=== PATIENT | male | born 1990 | race Caucasian/White ===

== ENCOUNTER 2021-04-19 15:49 | Outpatient (REF) | payer OTHER, SELFPAY ==
--- NOTE | ~2021-04-19 | US_ITS ---
EXAMINATION: US VENOUS ULTRASOUND WITH DOPPLER LOWER EXTREMITY, RIGHT CLINICAL INFORMATION: Pain COMPARISON: None TECHNIQUE: Ultrasound of the deep veins is performed from the hip to the calf with compression sonography and color and pulse Doppler assessment. Spectral analysis with color-flow imaging is performed. FINDINGS: There is normal venous compression and respiratory variation and augmented flow. The visualized common femoral vein, superficial femoral vein, profunda femoral vein, popliteal vein, and the trifurcation region shows no evidence of deep venous thrombosis. There is no significant popliteal fossa cyst. US/US venous duplex LE RT IMPRESSION: No DVT demonstrated in the right lower extremity.
== END 2021-04-19 15:50 | disposition home or self-care (01) ==
LOC: HO.US 15:49
PROVIDERS: PCP Internal Medicine; Visit Provider Nurse Practitioner Family
DX: M79.606 Pain in leg, unspecified (principal)
CPT/HCPCS: 93971

== ENCOUNTER 2021-06-03 15:43 | Outpatient (REF) | payer OTHER, SELFPAY ==
--- NOTE | ~2021-06-03 | XR_ITS ---
EXAMINATION: XR LUMBOSACRAL SPINE CLINICAL INFORMATION: Back pain. COMPARISON: None TECHNIQUE: Three views of the lumbosacral spine. FINDINGS: Grade 1 anterolisthesis of L5 on S1 with probable chronic bilateral spondylolysis. No loss of vertebral body height. Loss of intervertebral disc height with tiny endplate osteophytes at L5-S1. No lytic or blastic osseous lesion. No abnormal soft tissue calcification. XR/XR lumbar spine 2-3V IMPRESSION: Grade 1 anterolisthesis of L5 on S1 with probable chronic bilateral spondylolysis and mild degenerative disc disease.
[2021-06-03 16:24] LABS: MANUAL DIFF FLAG NO
[2021-06-03 16:26] LABS: Basophils Percent Auto 0.4 % (0-2); Eosinophils Absolute Auto 0.1 X10*3/uL (0.0-0.4); Eosinophils Percent Auto 0.9 % (0-4); Hematocrit 42.9 % (42-52); Hemoglobin 14.1 g/dl (14.0-18.0); Imm Gran Abs Auto 0.01 X10*3/uL (0.00-0.03); Imm Gran Pct Auto 0.1 % (0.0-0.4); Lymphocytes Absolute Auto 1.7 X10*3/uL (1.2-4.9); Lymphocytes Percent Auto 22.6 % (20-40); Mean Corpuscular HGB Conc 32.9 g/dl (31.0-36.0); Mean Corpuscular Hemoglobin 26.6 pg (27.0-33.0); Mean Corpuscular Volume 80.9 fL (80-98); Mean Platelet Volume 10.6 fL (9.4-12.4); Monocytes Absolute Auto 0.5 X10*3/uL (0.1-1.2); Monocytes Percent Auto 7.2 % (2-11); Neutrophils Absolute Auto 5.2 X10*3/uL (2.0-8.3); Neutrophils Percent Auto 68.8 % (45-73); Platelet Count 311 X10*3/uL (160-400); Red Cell Distribution Width 13.5 % (11.0-16.0); White Blood Count 7.6 X10*3/uL (4.8-10.8)
[2021-06-03 16:49] LABS: Alanine Aminotransferase 26 U/L (0-40); Alkaline Phosphatase 76 U/L (39-117); Anion Gap 13 (12-20); Aspartate Amino Transferase 22 U/L (5-37); Bilirubin Total 0.6 mg/dL (0.0-1.0); Blood Urea Nitrogen 10 mg/dL (9-16); C Reactive Protein 0.29 mg/dL (< or = 0.50); Calcium 10.1 mg/dL (8.4-10.2); Carbon Dioxide 27 mmol/L (22-29); Chloride 104 mmol/L (96-108); Estimated Glomerular Filt Rate > 60; Glucose Random 83 mg/dL (60-115); Potassium 4.4 mmol/L (3.3-5.1); Sodium 140 mmol/L (135-145); Total Protein 7.9 g/dL (6.5-8.0)
[2021-06-03 17:11] LABS: Thyroid Stimulating Hormone 1.48 uIU/mL (0.32-4.0)
[2021-06-04 15:23] LABS: Vitamin B12 193 pg/mL (200-900)
== END 2021-06-03 15:44 | disposition home or self-care (01) ==
LOC: HO.LAB 15:43
PROVIDERS: PCP Internal Medicine; Visit Provider Internal Medicine
DX: R63.5 Abnormal weight gain (principal); M54.9 Dorsalgia, unspecified; K21.9 Gastro-esophageal reflux disease without esophagitis; G43.909 Migraine, unspecified, not intractable, without status migrainosus; G62.9 Polyneuropathy, unspecified
CPT/HCPCS: 36415; 72100; 80053; 82607; 84443; 85025; 86140

== ENCOUNTER 2021-07-20 11:04 | Outpatient (RCR) | payer OTHER, SELFPAY | END 2021-07-28 07:57 | disposition home or self-care (01) | LOC: HO.PT 11:04 | PROVIDERS: PCP Internal Medicine; Visit Provider Internal Medicine | DX: M54.5 Low back pain (principal) | CPT/HCPCS: 97112; 97161 ==

== ENCOUNTER 2021-08-16 14:24 | Outpatient (REF) | payer OTHER, SELFPAY ==
[2021-08-16 15:36] LABS: Vitamin B12 261 pg/mL (200-900)
== END 2021-08-16 14:25 | disposition home or self-care (01) ==
LOC: HO.LAB 14:24
PROVIDERS: PCP Internal Medicine; Visit Provider Internal Medicine
DX: E53.8 Deficiency of other specified B group vitamins (principal)
CPT/HCPCS: 36415; 82607

== ENCOUNTER 2022-01-13 11:41 | Outpatient (REF) | payer OTHER, SELFPAY ==
[2022-01-13 12:02] LABS: MANUAL DIFF FLAG NO
[2022-01-13 13:19] LABS: Basophils Percent Auto 0.4 % (0-2); Eosinophils Absolute Auto 0.1 X10*3/uL (0.0-0.4); Eosinophils Percent Auto 1.3 % (0-4); Hematocrit 44.5 % (42.0-52.0); Hemoglobin 13.9 g/dl (14.0-18.0); Imm Gran Abs Auto 0.02 X10*3/uL (0.00-0.03); Imm Gran Pct Auto 0.3 % (0.0-0.4); Lymphocytes Absolute Auto 1.9 X10*3/uL (1.2-4.9); Mean Corpuscular HGB Conc 31.2 g/dl (31.0-36.0); Mean Corpuscular Volume 83.3 fL (80.0-98.0); Mean Platelet Volume 11.1 fL (9.4-12.4); Monocytes Absolute Auto 0.5 X10*3/uL (0.1-1.2); Monocytes Percent Auto 6.5 % (2-11); Neutrophils Absolute Auto 4.6 x10*3/uL (2.0-8.3); Neutrophils Percent Auto 64.5 % (45-73); Platelet Count 266 X10*3/uL (160-400); Red Blood Count 5.34 X10*6/uL (4.60-5.80); Red Cell Distribution Width 13.6 % (11.0-16.0); White Blood Count 7.1 X10*3/uL (4.8-10.8)
[2022-01-13 13:43] LABS: Alanine Aminotransferase 31 U/L (0-40); Albumin Level 4.5 g/dL (3.5-5.0); Alkaline Phosphatase 72 U/L (39-117); Anion Gap 15 (12-20); Aspartate Amino Transferase 20 U/L (5-37); Bilirubin Total 0.7 mg/dL (0.0-1.0); Blood Urea Nitrogen 8 mg/dL (9-16); Calcium 9.7 mg/dL (8.4-10.2); Carbon Dioxide 26 mmol/L (22-29); Chloride 104 mmol/L (96-108); Estimated Glomerular Filt Rate > 60; Glucose Random 77 mg/dL (60-115); Potassium 4.5 mmol/L (3.3-5.1); Sodium 140 mmol/L (135-145); Total Protein 7.5 g/dL (6.5-8.0)
[2022-01-13 14:03] LABS: Free T4 (Free Thyroxine) 0.86 ng/dL (0.71-1.85); Thyroid Stimulating Hormone 2.05 uIU/mL (0.32-4.0)
[2022-01-13 14:19] LABS: Vitamin B12 217 pg/mL (200-900)
== END 2022-01-13 11:42 | disposition home or self-care (01) ==
LOC: HO.LAB 11:41
PROVIDERS: PCP Internal Medicine; Visit Provider Internal Medicine
DX: R63.5 Abnormal weight gain (principal); E53.8 Deficiency of other specified B group vitamins; K21.9 Gastro-esophageal reflux disease without esophagitis
CPT/HCPCS: 36415; 80053; 82607; 84439; 84443; 85025

== ENCOUNTER → 2023-03-06 10:35 | Outpatient (REF) | payer OTHER, SELFPAY ==
[2023-03-06 10:48] LABS: MANUAL DIFF FLAG NO
[2023-03-06 11:28] LABS: Basophils Absolute Auto 0.1 X10*3/uL (0.0-0.2); Basophils Percent Auto 0.7 % (0-2); Eosinophils Absolute Auto 0.2 X10*3/uL (0.0-0.4); Eosinophils Percent Auto 2.2 % (0-4); Hematocrit 42.1 % (42.0-52.0); Hemoglobin 13.8 g/dl (14.0-18.0); Imm Gran Abs Auto 0.07 X10*3/uL (0.00-0.03); Imm Gran Pct Auto 0.8 % (0.0-0.4); Lymphocytes Absolute Auto 1.9 X10*3/uL (1.2-4.9); Lymphocytes Percent Auto 22.4 % (20-40); Mean Corpuscular HGB Conc 32.8 g/dl (31.0-36.0); Mean Corpuscular Hemoglobin 26.6 pg (27.0-33.0); Mean Corpuscular Volume 81.3 fL (80.0-98.0); Mean Platelet Volume 11.2 fL (9.4-12.4); Monocytes Absolute Auto 0.6 X10*3/uL (0.1-1.2); Monocytes Percent Auto 6.9 % (2-11); Neutrophils Absolute Auto 5.6 x10*3/uL (2.0-8.3); Platelet Count 295 X10*3/uL (160-400); Red Blood Count 5.18 X10*6/uL (4.60-5.80); Red Cell Distribution Width 13.9 % (11.0-16.0); White Blood Count 8.4 X10*3/uL (4.8-10.8)
[2023-03-06 12:10] LABS: Alanine Aminotransferase 25 U/L (0-40); Albumin Level 4.5 g/dL (3.5-5.0); Alkaline Phosphatase 86 U/L (39-117); Anion Gap 11 (12-20); Aspartate Amino Transferase 19 U/L (5-37); Bilirubin Total 0.7 mg/dL (0.0-1.0); Blood Urea Nitrogen 11 mg/dL (9-16); Calcium 9.5 mg/dL (8.4-10.2); Carbon Dioxide 27 mmol/L (22-29); Chloride 104 mmol/L (96-108); Cholesterol 241 mg/dL; Estimated Glomerular Filt Rate > 60; Glucose Random 91 mg/dL (60-115); Potassium 4.1 mmol/L (3.3-5.1); Sodium 138 mmol/L (135-145); Total Protein 7.2 g/dL (6.5-8.0)
[2023-03-06 12:37] LABS: Free T4 (Free Thyroxine) 0.96 ng/dL (0.71-1.85); Vitamin B12 292 pg/mL (200-900)
== END ==
LOC: HO.SL 10:35
PROVIDERS: PCP Internal Medicine; Visit Provider Internal Medicine
DX: G47.33 Obstructive sleep apnea (adult) (pediatric) (principal); R06.83 Snoring; R53.83 Other fatigue; R63.5 Abnormal weight gain; E53.8 Deficiency of other specified B group vitamins
CPT/HCPCS: 36415; 80053; 82465; 82607; 84439; 84443; 85025; 95806

== ENCOUNTER 2023-09-20 10:11 | Outpatient (AMB) | payer OTHER, SELFPAY ==
--- NOTE | 2023-09-20 10:29 | A.OFFVIS_ITS ---
Intake VS Expanded 09/20/23 10:31 09/24/23 13:03 Height 5 ft 10 in 5 ft 10 in Weight 322 lb 5.053 oz 322 lb BMI 46.2 46.2 Intake Visit Reasons: Obesity Allergies No Known Allergies [No Known Allergies*] Allergy (Unverified 07/08/20 19:14) HPI Nutrition Presentation Details Pt presents for MNT for morbid obesity.The Pt was referred by Dr. Butler Pt reports weight at 210 lbs at age 23 Pt reports having no meal routine b/L: chicken air fried /rice, onion D; 6 pm: pasta/chicken/ rice/beans, water snack on popcorn food frequency fish: not including fruits:0/d vegetables: once/wk cheese most of the time fluids: water 36-42 oz/d MVI: no physical: sedentary ETOH: occ DOC-Vutlvto-Le.Jeor Equation Height 5 ft 10 in Weight 322 lb Resting Metabolic Rate 2427.76 Calculated Activity Level Sedentary Calories Needed to Maintain Weight 2913.31 Diagnosis Nutrition problem #1 excessive energy intake and food nutri know defi As related to (etiology) #1 lack of nutrit education and diagnosis As evidenced by (sign/symptom) #1 high BMI (46.2 on 08/2023) and knowledge deficit of diet Monitoring/Goals Nutrition problem monitoring level of knowledge/skill, total PRO intake, total CHO intake and weight Nutrition goal/outcome list 3 CHO foods and wt loss 5lbs in 2 months Outcome progress verbalized understanding Learning/Education Readiness to learn good Stages of change preparation Educational materials provided Yes (meal planning) Most Recent Diabetes Results: Cholesterol 241 mg/dL 03/06/23 Creatinine 0.90 mg/dL (0.5-1.4) 03/06/23 Blood Urea Nitrogen 11 mg/dL (9-16) 03/06/23 Sodium 138 mmol/L (135-145) 03/06/23 Potassium 4.1 mmol/L (3.3-5.1) 03/06/23 Chloride 104 mmol/L (96-108) 03/06/23 Carbon Dioxide 27 mmol/L (22-29) 03/06/23 Calcium 9.5 mg/dL (8.4-10.2) 03/06/23 AST 19 U/L (5-37) 03/06/23 ALT 25 U/L (0-40) 03/06/23 Total Protein 7.2 g/dL (6.5-8.0) 03/06/23 Albumin 4.5 g/dL (3.5-5.0) 03/06/23 Assessment & Plan Assessment & Plan (1) Morbid obesity with BMI of 45.0-49.9, adult: Code(s): E66.01 - Morbid (severe) obesity due to excess calories; Z68.42 - Body mass index [BMI] 45.0-49.9, adult Plan: wt: 146 kg Est kcal needs as per MSJ: 2900 (40% carb, 30% protein/fat) Est fluid needs as per 25-30 ml/d: 4390 ml/d Est prot per day as per 1 g/kg bw: 146 g Recommend fiber intake : 8-10 g per day and gradually increase to 25-28 g per day for women and 35-38 g for men or as tolerated Recommend sodium intake per day : less than 2000 mg Educated patient on: ( R = reviewed V = verbalizes understanding N/R = needs review N/A = not applicable * Food sources of carbohydrate, adequate serving sizes and its role in various health conditions: R * Differences between complex carbohydrates a simple carbohydrates, role of fiber in diet: NR * Differences between types of fats and role in diet (mono on saturated fat fatty acids, saturated fatty acids, trans fats): R basic * Food sources of sodium in salt and healthy modifications for heart health in kidney health: NR * Vitamins and minerals: R * Healthy plate method concept: R * Physical activity: Benefits a precaution: NR Patient Instructions: Practice mindful eating Work on reducing total carbohydrate at meal to 90 g or less following healthy plate method Drink water with meals and snacks keep a food record , bring to next follow up for review Coding Level of Care Code Nutr Indiv Intake (24602) Diagnoses Morbid obesity with BMI of 45.0-49.9, adult E66.01; Z68.42 Time Spent (min) 30
[2023-09-20 10:31] VITALS: BMI 46.2
[2023-09-24 13:03] VITALS: BMI 46.2
== END 2023-09-20 11:03 | disposition home or self-care (01) ==
PROVIDERS: PCP Internal Medicine; Referring Provider Internal Medicine; Visit Provider Dietitian, Registered
DX: E66.01 Morbid (severe) obesity due to excess calories (principal); Z68.42 Body mass index [BMI] 45.0-49.9, adult

== ENCOUNTER → 2023-09-20 10:11 | Outpatient (BNVA) | payer OTHER, SELFPAY | PROVIDERS: PCP Internal Medicine; Referring Provider Internal Medicine; Visit Provider Dietitian, Registered | DX: E66.01 Morbid (severe) obesity due to excess calories (principal); Z68.42 Body mass index [BMI] 45.0-49.9, adult | CPT/HCPCS: 97802 ==

== ENCOUNTER 2023-10-21 12:33 | Emergency (ER) | payer OTHER, SELFPAY ==
--- NOTE | ~2023-10-21 | CT_ITS ---
EXAMINATION: CT ABDOMEN AND PELVIS WITH CONTRAST CLINICAL INFORMATION: Abdominal pain, concern for acute appendicitis. COMPARISON: None available. TECHNIQUE: Multidetector volumetric images were obtained from the superior aspect of the liver through the pubic symphysis following administration 85 mL of Omnipaque 350 intravenous contrast. Sagittal and coronal reformatted images were obtained on the technologist's workstation. Oral contrast: No This CT examination was performed using dose optimization techniques as appropriate, variously including the following: *Automated exposure control *Adjustment of mA and/or kV according to patient size (this includes techniques or standardized protocols for targeted exams where dose is matched to indication/reason for exam; i.e. extremities or head) *Use of iterative reconstruction technique DLP: 1288 mGy-cm FINDINGS: LUNG BASES: The visualized lung bases are unremarkable. LIVER, GALLBLADDER, AND BILIARY TREE: The liver is normal in size, shape, and attenuation. Too small to characterize hypodensity in the right hepatic lobe (2:17) favoring to represent a simple cyst or a fat locule in a patient of this age. No suspicious liver lesions. No biliary ductal dilatation is present. The gallbladder is unremarkable with no evidence of radiopaque gallstones, gallbladder wall thickening, or obvious pericholecystic inflammatory changes. PANCREAS: Unremarkable. SPLEEN: Unremarkable. ADRENAL GLANDS: Unremarkable. KIDNEYS AND URETERS: The kidneys are normal in size, shape, and attenuation. No hydronephrosis, hydroureter, or calculi seen. No perinephric stranding. BLADDER: Decompressed limiting evaluation. No perivesical fat stranding or free fluid. No intraluminal calculi. GASTROINTESTINAL TRACT: The appendix measures 7 to 8 mm in diameter with mild periappendiceal fat stranding. The stomach and small bowel are nondilated. No pericolonic fat stranding or free fluid. No bowel obstruction. No evidence of free air or organized extraluminal collection. ABDOMINAL WALL: No significant hernia is appreciated. LYMPH NODES: No lymphadenopathy. VASCULAR: Normal caliber abdominal aorta. PELVIC VISCERA: Unremarkable. OSSEOUS STRUCTURES: Grade 1/2 anterolisthesis of L5 on S1 with bilateral L5 pars defects. CT/CT abdomen pelvis w IV con IMPRESSION: 1. The appendix measures 7-8 mm in diameter with mild periappendiceal fat stranding suggesting acute appendicitis in the appropriate clinical context. 2. No evidence of free air or organized extraluminal collection.
--- NOTE | ~2023-10-21 | US_ITS ---
Examination: US appendix Indication: RLQ tenderness Comparison: No pertinent prior studies are currently available for comparison. Technique: Multiple sonographic views the right lower quadrant were obtained. Findings: Multiple sonographic views the right lower quadrant were obtained. The appendix is not able to be visualized due to overlying bowel gas and therefore remains indeterminant US/US appendix Impression: Appendix not able to be visualized
[2023-10-21 13:54] VITALS: BP 155/80; PULSE 82; RESP 15; TEMP 36.7; O2SAT 97; BMI 47.0
--- NOTE | 2023-10-21 13:54 | ED_ITS ---
HPI - General Adult General Chief complaint: Abdominal Pain Stated complaint: Abd pain/Nausea Time Seen by Provider: 10/21/23 20:39 Source: patient Mode of arrival: ambulatory Limitations: no limitations History of Present Illness HPI narrative: Patient is a 33 year old assigned male at with no reported medical history presenting to the emergency department today with RLQ abdominal pain. Patient states that starting last night he had sudden onset right lower quadrant abdominal pain with nausea and diarrhea. Patient denies any dizziness, lightheadedness, vomiting, fever, chills, blurry vision, double vision, loss of vision, chest pain, difficulty breathing, shortness of breath, back pain, night sweats, pain with urination, increased urinary frequency, increased urinary urgency, blood in his urine or stool, syncope or a near syncopal episode, recent trauma or falls, bowel incontinence, bladder incontinence, bowel retention, bladder retention, or any other complaints at this time. Onset (ago): day(s) (1) Location: abdomen Radiation: non-radiation Severity: mild Severity scale (1-10): 3 Quality: aching and dull Pain Consistency: constant Relieving factors: none Exacerbating factors: none Associated symptoms: nausea/vomiting Treatments prior to arrival: none Related Data Home Medications Medication Instructions Recorded Confirmed No Known Home Meds 04/19/21 04/19/21 Allergies Allergy/AdvReac Type Severity Reaction Status Date / Time No Known Allergies Allergy Unverified 07/08/20 19:14 [No Known Allergies*] Review of Systems 2 Constitutional: Constitutional: Reports no additional constitutional complaints, Denies chills, Denies fever(s) and Denies night sweats Eyes: Eyes: Reports no additional eye complaints, Denies blurry vision, Denies change in vision, Denies diplopia, Denies eye discharge, Denies loss of vision and Denies eye pain ENT: Denies dizziness Cardiovascular: Cardiovascular: Reports no additional cardiovascular complaints, Denies chest pain, Denies lightheadedness, Denies Loss of Consciousness and Denies dyspnea Respiratory: Respiratory: Reports no additional respiratory complaints and Denies dyspnea Gastrointestinal: Gastrointestinal: Reports no additional gastrointestinal complaints, Reports abdominal pain, Denies melena, Denies hematochezia, Denies change in bowel habits, Denies change in stool character and Reports diarrhea Genitourinary: Genitourinary: Reports no additional male genitourinary complaints, Denies hematuria, Denies oliguria, Denies difficulty urinating, Denies dysuria, Denies urinary frequency, Denies urinary hesitancy, Denies urinary incontinence and Denies urinary urgency Musculoskeletal: Musculoskeletal: Reports no additional musculoskeletal complaints, Denies numbness and Denies tingling Neurologic: Denies dizziness, Denies loss of vision, Denies numbness and Denies tingling Psychiatric: Psychiatric: Reports no additional psychiatric complaints Endocrine: Endocrine: Reports no additional endocrine complaints Hematologic/Lymphatic: Hematologic/Lymphatic: Reports no additional hematologic/lymphatic complaints Allergic/Immunologic: Allergic/Immunologic: Reports no additional allergic/immunologic complaints [facility] Past Medical History Attestation statement: The following information was validated with the patient. Source: old records reviewed and nursing notes reviewed Social History Social History Unable to assess alcohol history related to: Unknown Smoked in Last 30 Days: No Use of substances other than those prescribed or required for medical reasons: No Advance Directives: No Advance Directives Information Provided: No Physical Exam ED Vital Signs: Vital Signs - 24 hr 10/21/23 13:54 10/21/23 20:09 Temperature 98.1 F 97.7 F Pulse Rate 82 82 Respiratory Rate 15 17 Blood Pressure 155/80 H 124/82 Pulse Oximetry 97 98 Oxygen Delivery Method Room Air Room Air BMI result Body Mass Index 47.0 Const General: cooperative, no acute distress, alert and awake Nutritional Appearance: well nourished Orientation/consciousness: patient oriented x3 Limitations: no limitations [facility] Head: Yes normal to inspection and Yes atraumatic Ears: hearing grossly normal bilaterally and external ears normal General nose exam: Normal external nose present, no nasal discharge noted and no epistaxis Face and sinus: Yes normal facial exam, No abrasion and No laceration Mouth: Normal oral and palatal mucosa present, no drooling and no muffled voice Eyes General: appearance normal, both eyes and all related structures Periorbital: periorbital findings normal Eyelids: Yes eyelids normal Conjunctivae: conjunctivae normal Pupils: Equal, round and reactive pupils present EOM: EOMs intact bilaterally Neck Neck: Yes normal visual inspection, Yes full ROM and Yes no lymphadenopathy Chest Chest palpation & inspection: normal inspection of the chest Resp Effort & Inspection: normal respiratory effort and able to speak in complete sentences GI Inspection: Yes normal to inspection Palpation (GI): Soft to palpation, not firm, Tenderness to palpation present (GI) in the RLQ, no guarding and not rigid Neuro General: patient oriented x3 and moves all extremities Cranial nerves: Yes Equal, round and reactive pupils present Cognition (Neuro): normal cognition Motor exam (neuro): 5/5 motor strength present throughout Sensory Exam: Normal double simultaneous stimulation for sensation Coordination: [id number] test normal Extrem General: Yes normal to inspection, Yes full ROM and Yes capillary refill normal Psych Appearance: grossly normal Mental Status: mental status grossly normal Affect: normal affect Attitude: cooperative Thought process: Normal thought process present Thought content: Normal thought content present Insight: Good insight present (Psych) Course Course Course Narrative: This is a rapid medical exam: Additional HPI, ROS, PE not included below will be deferred to primary provider. Patient is a 33-year-old male presenting to the ED with complaint of RLQ pain for the past 24 hours, states he is concerned for appendicitis. Rates pain at 5-6/10. Took Dayquil prior to arrival. Reports nausea but denies vomiting or constipation, diarrhea last night x 2. Denies fevers. States he feels flu like. Also complains of lower right back pain. Plan: viral swabs, labs, UA, ultrasound Medications Administered Discontinued Medications Generic Name Dose Route Start Last Admin Trade Name Max PRN Reason Stop Dose Admin Iohexol 100 ml 10/21/23 22:38 10/21/23 22:38 Iohexol 350 Mg/Ml 100 Ml Infus..Btl IV 10/21/23 22:39 85 ml ONCE ONE Administration Ondansetron HCl 4 mg 10/21/23 20:50 10/21/23 20:53 Ondansetron Hcl 4 Mg/2 Ml Vial IVPUSH 10/21/23 20:51 4 mg ONCE ONE Administration Medical Decision Making Medical Decision Making MDM Narrative: Patient is a 33 year old assigned male at with no reported medical history presenting to the emergency department today with abdominal pain, nausea, and diarrhea. Patient's physical exam was as noted in the physical exam portion of this note. Patient's blood work was unremarkable. Patient's urine showed no acute process. Patient's abdomen/pelvis CT showed evidence of appendicitis. I consulted the surgical team who stated the patient was stable enough to go home and follow up outpatient however, if the patient wanted to be admitted to the hospital for observation, could be. I explained my physical exam findings as well as all test results to the patient. I answered all questions asked by the patient. Patient opted to go home and follow up on an outpatient basis. I stressed the importance of the patient taking his medication as prescribed. I stressed the importance of the patient following up with his primary care provider and the general surgeon. I stressed the importance of the patient returning to the emergency department immediately if his symptoms were to worsen or if he were to develop any dizziness, shortness of breath, difficulty breathing, chest pain, blurry vision, loss of vision, nausea, vomiting, abdominal pain, fever, chills, back pain, or any other complaints. Patient verbalized agreement and understanding with this treatment plan and discharge. Differential Diagnosis Differential Diagnoses: The differential diagnosis associated with the presentation includes Abdominal pain Appendicitis Admission/Observation Consideration of admission/observation: Escalation of care including admission/observation considered Patient would have been admitted to the hospital had his work up had any findings where hospital admission was appropriate, his clinical presentation warranted hospital admission, and he had agreed to observation. Consult Healthcare Provider Management of the patient was discussed with: [employer] Clerk (spoke with the surgeon as noted in the MDM Rationale portion of this note.) Lab Data [facility] Lab Attestation statement: I reviewed the patient's lab results. My interpretation of these studies and their corresponding values is that they are grossly normal. 10/21/23 16:58 10/21/23 16:58 Labs: Lab Results 10/21/23 10/21/23 Range/Units 16:58 21:38 WBC 9.3 (4.8-10.8) X10*3/uL RBC 5.34 (4.60-5.80) X10*6/uL Hgb 14.0 (14.0-18.0) g/dl Hct 42.5 (42.0-52.0) % MCV 79.6 L (80.0-98.0) fL MCH 26.2 L (27.0-33.0) pg MCHC 32.9 (31.0-36.0) g/dl RDW 14.1 (11.0-16.0) % Plt Count 297 (160-400) X10*3/uL MPV 10.5 (9.4-12.4) fL Immature Gran % (Auto) 0.2 (0.0-0.4) % Neut % (Auto) 72.0 (45-73) % Lymph % (Auto) 18.6 L (20-40) % Ware % (Auto) 7.5 (2-11) % Eos % (Auto) 1.2 (0-4) % Baso % (Auto) 0.5 (0-2) % Lymph # (Auto) 1.7 (1.2-4.9) X10*3/uL Ware # (Auto) 0.7 (0.1-1.2) X10*3/uL Eos # (Auto) 0.1 (0.0-0.4) X10*3/uL Baso # (Auto) 0.1 (0.0-0.2) X10*3/uL Abs Immat Gran (auto) 0.02 (0.00-0.03) X10*3/uL Absolute Neuts (auto) 6.7 (2.0-8.3) x10*3/uL Absolute Nucleated RBC 0.000 (0.0-0.012) X10*3/uL Nucleated RBC % (auto) 0.0 (0.0-0.2) /100WBC Sodium 140 (135-145) mmol/L Potassium 4.0 (3.3-5.1) mmol/L Chloride 106 (96-108) mmol/L Carbon Dioxide 26 (22-29) mmol/L Anion Gap 12 (12-20) BUN 9 (9-16) mg/dL Creatinine 1.11 (0.5-1.4) mg/dL Estim Creat Clear Calc 136.5 Estimated GFR > 60 Random Glucose 84 (60-115) mg/dL Calcium 9.5 (8.4-10.2) mg/dL Total Bilirubin 0.4 (0.0-1.0) mg/dL AST 28 (5-37) U/L ALT 45 H (0-40) U/L Alkaline Phosphatase 86 (39-117) U/L Total Protein 7.9 (6.5-8.0) g/dL Albumin 4.7 (3.5-5.0) g/dL Urine Color Yellow Urine Appearance Clear Urine pH 5.5 (5.0-9.0) Ur Specific [place] 1.025 (1.005-1.025) Urine Protein Negative (Neg-Trace) mg/dL Urine Glucose (UA) Negative (Negative) mg/dL Urine Ketones Negative (Negative) mg/dL Urine Blood Negative (Negative) Urine Nitrite Negative (Negative) Ur Leukocyte Esterase Negative (Negative) Influenza Type A (PCR) NEGATIVE (Negative) Influenza Type B (PCR) NEGATIVE (Negative) RSV RNA Qual (PCR) NEGATIVE (Negative) SARS-CoV-2 RNA (RT-PCR) NEGATIVE (Negative) Independent Interpretation I performed an independent interpretation of an: Ultrasound and CT Scan Interpretation: My interpretation is in agreement with the radiologist's impression of these imaging studies. - Examination: US appendix Indication: RLQ tenderness Comparison: No pertinent prior studies are currently available for comparison. Technique: Multiple sonographic views the right lower quadrant were obtained. Findings: Multiple sonographic views the right lower quadrant were obtained. The appendix is not able to be visualized due to overlying bowel gas and therefore remains indeterminant US/US appendix Impression: Appendix not able to be visualized Dictated By: Paramjit Styles MD Signed By: Electronically signed by Paramjit Styles MD 10/21/23 1636 - EXAMINATION: CT ABDOMEN AND PELVIS WITH CONTRAST CLINICAL INFORMATION: Abdominal pain, concern for acute appendicitis. COMPARISON: None available. TECHNIQUE: Multidetector volumetric images were obtained from the superior aspect of the liver through the pubic symphysis following administration 85 mL of Omnipaque 350 intravenous contrast. Sagittal and coronal reformatted images were obtained on the technologist's workstation. Oral contrast: No This CT examination was performed using dose optimization techniques as appropriate, variously including the following: *Automated exposure control *Adjustment of mA and/or kV according to patient size (this includes techniques or standardized protocols for targeted exams where dose is matched to indication/reason for exam; i.e. extremities or head) *Use of iterative reconstruction technique DLP: 1288 mGy-cm FINDINGS: LUNG BASES: The visualized lung bases are unremarkable. LIVER, GALLBLADDER, AND BILIARY TREE: The liver is normal in size, shape, and attenuation. Too small to characterize hypodensity in the right hepatic lobe (2:17) favoring to represent a simple cyst or a fat locule in a patient of this age. No suspicious liver lesions. No biliary ductal dilatation is present. The gallbladder is unremarkable with no evidence of radiopaque gallstones, gallbladder wall thickening, or obvious pericholecystic inflammatory changes. PANCREAS: Unremarkable. SPLEEN: Unremarkable. ADRENAL GLANDS: Unremarkable. KIDNEYS AND URETERS: The kidneys are normal in size, shape, and attenuation. No hydronephrosis, hydroureter, or calculi seen. No perinephric stranding. BLADDER: Decompressed limiting evaluation. No perivesical fat stranding or free fluid. No intraluminal calculi. GASTROINTESTINAL TRACT: The appendix measures 7 to 8 mm in diameter with mild periappendiceal fat stranding. The stomach and small bowel are nondilated. No pericolonic fat stranding or free fluid. No bowel obstruction. No evidence of free air or organized extraluminal collection. ABDOMINAL WALL: No significant hernia is appreciated. LYMPH NODES: No lymphadenopathy. VASCULAR: Normal caliber abdominal aorta. PELVIC VISCERA: Unremarkable. OSSEOUS STRUCTURES: Grade 1/2 anterolisthesis of L5 on S1 with bilateral L5 pars defects. CT/CT abdomen pelvis w IV con IMPRESSION: 1. The appendix measures 7-8 mm in diameter with mild periappendiceal fat stranding suggesting acute appendicitis in the appropriate clinical context. 2. No evidence of free air or organized extraluminal collection. Dictated By: Teresa Azar Signed By: Electronically signed by Teresa Azar 10/21/23 5922 Radiology Impression Discussion of test interpretation with radiology: I have reviewed the radiologist's reading. Critical Care Time Critical Care Time Critical Care Time: Yes Total Critical Care Time: 45 Attestation: I spent 45 minutes of Critical Care Time with this patient. This does not include time spent on separately reported billable procedures. Discharge Plan Discharge Clinical Impression: Appendicitis Patient Disposition: Home, Self-Care Instructions: Acute Abdominal Pain (DC) Additional Instructions: You have appendicitis however, it is not at a point where it needs emergent removal. Make sure to follow up with the general surgeon. Follow up with your primary care provider. Return to the emergency department immediately if your symptoms worsen or if you develop any dizziness, shortness of breath, difficulty breathing, chest pain, blurry vision, loss of vision, nausea, vomiting, abdominal pain, fever, chills, back pain, or any other complaints. Prescriptions: No Action No Known Home Meds Referrals: [facility] [place] [facility] [Provider Group] (Call to establish and follow up with the general surgery team. ) Paul Butler MD [Primary Care Provider] - Interventions: ED Discharge Assessment Last Done: 10/21/23 23:54 Print Language: Albanian
[2023-10-21 17:02] LABS: MANUAL DIFF FLAG NO
[2023-10-21 17:21] LABS: Basophils Absolute Auto 0.1 X10*3/uL (0.0-0.2); Basophils Percent Auto 0.5 % (0-2); Eosinophils Absolute Auto 0.1 X10*3/uL (0.0-0.4); Eosinophils Percent Auto 1.2 % (0-4); Hematocrit 42.5 % (42.0-52.0); Imm Gran Abs Auto 0.02 X10*3/uL (0.00-0.03); Imm Gran Pct Auto 0.2 % (0.0-0.4); Lymphocytes Absolute Auto 1.7 X10*3/uL (1.2-4.9); Lymphocytes Percent Auto 18.6 % (20-40); Mean Corpuscular HGB Conc 32.9 g/dl (31.0-36.0); Mean Corpuscular Hemoglobin 26.2 pg (27.0-33.0); Mean Corpuscular Volume 79.6 fL (80.0-98.0); Mean Platelet Volume 10.5 fL (9.4-12.4); Monocytes Absolute Auto 0.7 X10*3/uL (0.1-1.2); Monocytes Percent Auto 7.5 % (2-11); Neutrophils Absolute Auto 6.7 x10*3/uL (2.0-8.3); Platelet Count 297 X10*3/uL (160-400); Red Blood Count 5.34 X10*6/uL (4.60-5.80); Red Cell Distribution Width 14.1 % (11.0-16.0); White Blood Count 9.3 X10*3/uL (4.8-10.8)
[2023-10-21 17:24] LABS: Alanine Aminotransferase 45 U/L (0-40); Albumin Level 4.7 g/dL (3.5-5.0); Alkaline Phosphatase 86 U/L (39-117); Anion Gap 12 (12-20); Aspartate Amino Transferase 28 U/L (5-37); Bilirubin Total 0.4 mg/dL (0.0-1.0); Blood Urea Nitrogen 9 mg/dL (9-16); Calcium 9.5 mg/dL (8.4-10.2); Carbon Dioxide 26 mmol/L (22-29); Chloride 106 mmol/L (96-108); Creatinine Clr Calc Pharmacy 136.5; Estimated Glomerular Filt Rate > 60; Glucose Random 84 mg/dL (60-115); Sodium 140 mmol/L (135-145); Total Protein 7.9 g/dL (6.5-8.0)
[2023-10-21 17:46] LABS: Influenza A PCR NEGATIVE (Negative); Influenza B PCR NEGATIVE (Negative); Resp Syncy Virus RNA Qual PCR NEGATIVE (Negative); SARS COV2 PCR INHOUSE NEGATIVE (Negative)
[2023-10-21 20:09] VITALS: BP 124/82; PULSE 82; RESP 17; TEMP 36.5; O2SAT 98
[2023-10-21] MEDS: ondansetron HCL 4 MG/2 ML VIAL IVPUSH (20:53)
[2023-10-21 21:44] LABS: Appearance Urine Clear; Color Urine Yellow; Glucose Urine UA Negative (Negative); Leukocyte Esterase Urine Negative (Negative); Nitrite Urine Negative (Negative); PH 5.5 (5.0-9.0); Specific Gravity - Urine 1.025 (1.005-1.025); Urine Blood Negative (Negative); Urine Ketones Negative (Negative); Urine Protein Negative (Neg-Trace)
--- NOTE | 2023-10-21 22:28 | PC.NURSE ---
Ct notified pt ready for scan
[2023-10-21] MEDS: iohexoL 350 MG/ML 100 ML INFUS..BTL IV (22:38)
== END 2023-10-21 23:57 | disposition home or self-care (01) ==
PROVIDERS: Registered Nurse Emergency; Emergency Provider Emergency Medicine; PCP Internal Medicine
DX: K37 Unspecified appendicitis (principal); Z20.822 Contact with and (suspected) exposure to COVID-19; Z20.828 Contact with and (suspected) exposure to other viral communicable diseases
CPT/HCPCS: 0241U; 74177; 76705; 80053; 81003; 85025; 96374; 99284; J2405; Q9967

== ENCOUNTER 2023-10-24 12:49 | Outpatient (AMB) | payer OTHER, SELFPAY ==
--- NOTE | 2023-10-24 12:59 | MHC.OFFVIS ---
Intake Vital Signs 10/24/23 13:06 Height 5 ft 9 in Weight 320 lb BMI 47.3 BP 120/112 H Blood Pressure Location Lt brachial Position Sitting Pulse 80 Intake Visit Reasons: Appendicitis Intake Note: Patient here to f/u from ER visit on 10-21-23. Patient c/o abd pain. Reports pain was worse yesterday. Recent Abd/ pelvis CT on 10-21-23. [employer] Developer Required: No Accompanied by: Self / Same As Patient Allergies No Known Allergies [No Known Allergies*] Allergy (Unverified 10/24/23 13:04) HPI HPI Comments History of Present Illness Details Patient was seen emergency department several days ago for right-sided abdominal pain. CT scan was inconclusive for appendicitis. Apparently patient had improvement of symptoms was discharged home. Presents here for follow-up. He has had during his ER visit his pain was 7/10. He says now his pain is 3/10. Meantime, he is tolerating his diet. Having normal bowel habits he has no documented fever. Chart was reviewed patient evaluated [facility] Surgical History (Updated 10/24/23 @ 13:36 by Cody Shrestha MD) [place] teeth extracted Social History (Updated 10/24/23 @ 13:06 by JALYN Reddy) Unable to assess alcohol history related to: Unknown Alcohol intake: never Substance Use Type: Marijuana Substance Use Frequency: Occasionally Physical Exam Vital Signs: Last Vital Signs Pulse 80 10/24/23 13:06 BP 120/112 H 10/24/23 13:06 BMI result Body Mass Index 47.3 Chest Other: Chest breath sounds bilaterally, HS 1 in 2 GI Other: Abdomen quite corpulent. To deep palpation right lower quadrant tenderness but without any evidence of any guarding, rebound, rigidity. Abdomen otherwise benign. Assessment & Plan Assessment & Plan (1) Abdominal pain: Code(s): R10.9 - Unspecified abdominal pain Plan Patient is currently improving from his original ER visit with abdominal pain. Current plan is at the patient develops recurrence or persistence of his symptoms, he is to return to the office or to the ER. The meantime, he will be treated conservatively will follow-up p.r.n.. All questions answered. Coding Level of Care Code New Pt Level 4 (40918) Diagnoses Abdominal pain R10.9
[2023-10-24 13:06] VITALS: BP 120/112; PULSE 80; BMI 47.3
== END 2023-10-24 13:22 | disposition home or self-care (01) ==
PROVIDERS: PCP Internal Medicine; Visit Provider Surgery
DX: R10.9 Unspecified abdominal pain (principal)
CPT/HCPCS: 99204

== ENCOUNTER → 2023-10-24 12:49 | Outpatient (BNVA) | payer OTHER, SELFPAY | PROVIDERS: PCP Internal Medicine; Visit Provider Surgery | DX: R10.9 Unspecified abdominal pain (principal) | CPT/HCPCS: 99202 ==

== ENCOUNTER 2023-10-25 08:00 | Observation (INO) | payer OTHER, SELFPAY ==
--- NOTE | 2023-10-25 08:06 | ED.GENADULT ---
HPI - General Adult General Chief complaint: Abdominal Pain Stated complaint: Appendicitis ? Time Seen by Provider: 10/25/23 08:05 Source: patient Mode of arrival: ambulatory Limitations: no limitations History of Present Illness HPI narrative: Patient is a 33 year old assigned male at with a history of recent appendicitis diagnosis presenting to the emergency department today with worsening right lower quadrant pain. Patient states that on 10/21/2023 he was diagnosed with appendicitis and told to follow up with a general surgeon on an outpatient basis. Patient states that he followed up with the surgeon yesterday and was told to come to the ER if his pain worsens. Patient states that his pain has gotten significantly worse. Patient denies any dizziness, lightheadedness, nausea, vomiting, fever, chills, blurry vision, double vision, loss of vision, chest pain, difficulty breathing, shortness of breath, back pain, night sweats, pain with urination, increased urinary frequency, increased urinary urgency, blood in his urine or stool, syncope or a near syncopal episode, recent trauma or falls, bowel incontinence, bladder incontinence, bowel retention, bladder retention, or any other complaints at this time. Onset (ago): day(s) Location: abdomen and right Radiation: non-radiation Severity: moderate Severity scale (1-10): 5 Pain Consistency: constant Relieving factors: none Exacerbating factors: none Associated symptoms: denies other symptoms Treatments prior to arrival: none Related Data Home Medications Medication Instructions Recorded Confirmed sertraline 50 mg tablet 50 mg PO DAILY 10/24/23 10/25/23 Allergies Allergy/AdvReac Type Severity Reaction Status Date / Time No Known Allergies Allergy Verified 10/25/23 08:15 [No Known Allergies*] Review of Systems Constitutional: Constitutional: Reports no additional constitutional complaints, Denies chills, Denies fever(s) and Denies night sweats Eyes: Eyes: Reports no additional eye complaints, Denies blurry vision, Denies change in vision, Denies diplopia, Denies eye discharge, Denies loss of vision and Denies eye pain ENT: Denies dizziness Cardiovascular: Cardiovascular: Reports no additional cardiovascular complaints, Denies chest pain, Denies lightheadedness, Denies Loss of Consciousness and Denies dyspnea Respiratory: Respiratory: Reports no additional respiratory complaints and Denies dyspnea Gastrointestinal: Gastrointestinal: Reports no additional gastrointestinal complaints, Reports abdominal pain, Denies melena, Denies hematochezia, Denies change in bowel habits and Denies change in stool character Genitourinary: Genitourinary: Reports no additional male genitourinary complaints, Denies hematuria, Denies oliguria, Denies difficulty urinating, Denies dysuria, Denies urinary frequency, Denies urinary hesitancy, Denies urinary incontinence and Denies urinary urgency Musculoskeletal: Musculoskeletal: Reports no additional musculoskeletal complaints, Denies numbness and Denies tingling Neurologic: Denies dizziness, Denies loss of vision, Denies numbness and Denies tingling Psychiatric: Psychiatric: Reports no additional psychiatric complaints Endocrine: Endocrine: Reports no additional endocrine complaints Hematologic/Lymphatic: Hematologic/Lymphatic: Reports no additional hematologic/lymphatic complaints Allergic/Immunologic: Allergic/Immunologic: Reports no additional allergic/immunologic complaints PMFSH Past Medical History Attestation statement: The following information was validated with the patient. Source: old records reviewed and nursing notes reviewed Onset Date is defined in the Problem List Problems that require an onset date and time if occurred within 24 hrs of arrival to the ED Aortic Dissection and Rupture; Neurologic impairment; Cardiopulmonary Arrest; Endotracheal Intubation; Insertion or Replacement of Mechanical Circulatory Assist Device Surgical History [place] teeth extracted Social History Social History Unable to assess alcohol history related to: Unknown Alcohol intake: never Smoked in Last 30 Days: No Use of substances other than those prescribed or required for medical reasons: Yes Substance Use Type: Marijuana Substance Use Frequency: Occasionally Advance Directives: No Physical Exam ED Vital Signs: Vital Signs - 24 hr 10/25/23 08:15 10/25/23 09:10 10/25/23 11:10 Temperature 100.4 F Pulse Rate 100 89 78 Respiratory Rate 20 20 16 Blood Pressure 156/84 H 127/79 104/61 Pulse Oximetry 96 98 94 Oxygen Delivery Method Room Air Room Air Room Air 10/25/23 14:07 Temperature 98.6 F Pulse Rate 75 Respiratory Rate 16 Blood Pressure 107/66 Pulse Oximetry 97 Oxygen Delivery Method Room Air BMI result Body Mass Index 47.2 Const General: cooperative, no acute distress, alert and awake Nutritional Appearance: well nourished Orientation/consciousness: patient oriented x3 Limitations: no limitations HENMT Head: Yes normal to inspection and Yes atraumatic Ears: hearing grossly normal bilaterally and external ears normal General nose exam: Normal external nose present, no nasal discharge noted and no epistaxis Face and sinus: Yes normal facial exam, No abrasion and No laceration Mouth: Normal oral and palatal mucosa present, no drooling and no muffled voice Eyes General: appearance normal, both eyes and all related structures Periorbital: periorbital findings normal Eyelids: Yes eyelids normal Conjunctivae: conjunctivae normal Pupils: Equal, round and reactive pupils present EOM: EOMs intact bilaterally Neck Neck: Yes normal visual inspection, Yes full ROM and Yes no lymphadenopathy Chest Chest palpation & inspection: normal inspection of the chest Resp Effort & Inspection: normal respiratory effort and able to speak in complete sentences GI Inspection: Yes normal to inspection Palpation (GI): Soft to palpation, not firm, Tenderness to palpation present (GI) in the RLQ, no guarding and not rigid Neuro General: patient oriented x3 and moves all extremities Cranial nerves: Yes Equal, round and reactive pupils present Cognition (Neuro): normal cognition Motor exam (neuro): 5/5 motor strength present throughout Sensory Exam: Normal double simultaneous stimulation for sensation Coordination: [id number] test normal Extrem General: Yes normal to inspection, Yes full ROM and Yes capillary refill normal Psych Appearance: grossly normal Mental Status: mental status grossly normal Affect: normal affect Attitude: cooperative Thought process: Normal thought process present Thought content: Normal thought content present Insight: Good insight present (Psych) Medications Administered Generic Name Dose Route Start Last Admin Trade Name Freq PRN Reason Stop Dose Admin Acetaminophen 1,000 mg in 100 mls @ 400 mls/hr 10/25/23 09:30 10/25/23 10:28 Ofirmev IV 10/26/23 03:44 Infused Q6H KEON Infusion Piperacillin Sod/Tazobactam 50 mls @ 100 mls/hr 10/25/23 10:00 10/25/23 10:45 Sod 3.375 gm/ Sodium Chloride IV Infused Q6H KEON Infusion Discontinued Medications Generic Name Dose Route Start Last Admin Trade Name Freq PRN Reason Stop Dose Admin Morphine Sulfate 4 mg 10/25/23 08:46 10/25/23 09:16 Morphine Sulfate 4 Mg/Ml Cartridge IVPUSH 10/25/23 08:47 4 mg ONCE ONE Administration Protocol Ondansetron HCl 4 mg 10/25/23 08:46 10/25/23 09:16 Ondansetron Hcl 4 Mg/2 Ml Vial IVPUSH 10/25/23 08:47 4 mg ONCE ONE Administration Medical Decision Making Medical Decision Making [facility] Narrative: Patient is a 33 year old assigned male at with a history of recent appendicitis diagnosis presenting to the emergency department today with worsening abdominal pain. Patient's physical exam was as noted in the physical exam portion of this note. Patient's blood work was unremarkable. I spoke to the general surgeon who agreed to admission. Patient's clinical presentation is not consistent with sepsis (@0900). Patient to be admitted for acute worsening appendicitis. I explained my physical exam findings as well as all test results to the patient. I answered all questions asked by the patient. Patient verbalized agreement and understanding with this treatment plan and admission. Differential Diagnosis Differential Diagnoses: The differential diagnosis associated with the presentation includes Appendcitis Admission/Observation Consideration of admission/observation: Escalation of care including admission/observation considered Patient admitted to the surgical service. Consult Healthcare Provider Management of the patient was discussed with: Textile Dyer (spoke to the surgeon as noted in the MDM Rationale portion of this note.) Lab Data [facility] Lab Attestation statement: I reviewed the patient's lab results. My interpretation of these studies and their corresponding values is that they are grossly normal. 10/25/23 08:39 10/25/23 08:39 Labs: Lab Results 10/25/23 Range/Units 08:39 WBC 6.6 (4.8-10.8) X10*3/uL RBC 5.23 (4.60-5.80) X10*6/uL Hgb 13.6 L (14.0-18.0) g/dl Hct 41.4 L (42.0-52.0) % MCV 79.2 L (80.0-98.0) fL MCH 26.0 L (27.0-33.0) pg MCHC 32.9 (31.0-36.0) g/dl RDW 14.0 (11.0-16.0) % Plt Count 263 (160-400) X10*3/uL MPV 10.0 (9.4-12.4) fL Immature Gran % (Auto) 0.2 (0.0-0.4) % Neut % (Auto) 81.8 H (45-73) % Lymph % (Auto) 7.0 L (20-40) % [place] % (Auto) 9.4 (2-11) % Eos % (Auto) 1.1 (0-4) % Baso % (Auto) 0.5 (0-2) % Lymph # (Auto) 0.5 L (1.2-4.9) X10*3/uL [place] # (Auto) 0.6 (0.1-1.2) X10*3/uL Eos # (Auto) 0.1 (0.0-0.4) X10*3/uL Baso # (Auto) 0.0 (0.0-0.2) X10*3/uL Abs Immat Gran (auto) 0.01 (0.00-0.03) X10*3/uL Absolute Neuts (auto) 5.4 (2.0-8.3) x10*3/uL Absolute Nucleated RBC 0.000 (0.0-0.012) X10*3/uL Nucleated RBC % (auto) 0.0 (0.0-0.2) /100WBC Sodium 137 (135-145) mmol/L Potassium 3.9 (3.3-5.1) mmol/L Chloride 105 (96-108) mmol/L Carbon Dioxide 25 (22-29) mmol/L Anion Gap 11 L (12-20) BUN 9 (9-16) mg/dL Creatinine 0.95 (0.5-1.4) mg/dL Estim Creat Clear Calc 159.9 Estimated GFR > 60 Random Glucose 102 (60-115) mg/dL Lactic Acid 0.7 (0.5-2.0) mmol/L Calcium 9.4 (8.4-10.2) mg/dL Magnesium 1.6 (1.6-2.6) mg/dL Total Bilirubin 0.4 (0.0-1.0) mg/dL AST 19 (5-37) U/L ALT 30 (0-40) U/L Alkaline Phosphatase 77 (39-117) U/L Total Protein 7.6 (6.5-8.0) g/dL Albumin 4.4 (3.5-5.0) g/dL Influenza Type A (PCR) NEGATIVE (Negative) Influenza Type B (PCR) NEGATIVE (Negative) RSV RNA Qual (PCR) NEGATIVE (Negative) SARS-CoV-2 RNA (RT-PCR) POSITIVE A (Negative) Independent Interpretation I performed an independent interpretation of an: CT Scan Interpretation: My interpretation is in agreement with the radiologist's impression of this imaging study from 10/21/2023. EXAMINATION: CT ABDOMEN AND PELVIS WITH CONTRAST CLINICAL INFORMATION: Abdominal pain, concern for acute appendicitis. COMPARISON: None available. TECHNIQUE: Multidetector volumetric images were obtained from the superior aspect of the liver through the pubic symphysis following administration 85 mL of Omnipaque 350 intravenous contrast. Sagittal and coronal reformatted images were obtained on the technologist's workstation. Oral contrast: No This CT examination was performed using dose optimization techniques as appropriate, variously including the following: *Automated exposure control *Adjustment of mA and/or kV according to patient size (this includes techniques or standardized protocols for targeted exams where dose is matched to indication/reason for exam; i.e. extremities or head) *Use of iterative reconstruction technique DLP: 1288 mGy-cm FINDINGS: LUNG BASES: The visualized lung bases are unremarkable. LIVER, GALLBLADDER, AND BILIARY TREE: The liver is normal in size, shape, and attenuation. Too small to characterize hypodensity in the right hepatic lobe (2:17) favoring to represent a simple cyst or a fat locule in a patient of this age. No suspicious liver lesions. No biliary ductal dilatation is present. The gallbladder is unremarkable with no evidence of radiopaque gallstones, gallbladder wall thickening, or obvious pericholecystic inflammatory changes. PANCREAS: Unremarkable. SPLEEN: Unremarkable. ADRENAL GLANDS: Unremarkable. KIDNEYS AND URETERS: The kidneys are normal in size, shape, and attenuation. No hydronephrosis, hydroureter, or calculi seen. No perinephric stranding. BLADDER: Decompressed limiting evaluation. No perivesical fat stranding or free fluid. No intraluminal calculi. GASTROINTESTINAL TRACT: The appendix measures 7 to 8 mm in diameter with mild periappendiceal fat stranding. The stomach and small bowel are nondilated. No pericolonic fat stranding or free fluid. No bowel obstruction. No evidence of free air or organized extraluminal collection. ABDOMINAL WALL: No significant hernia is appreciated. LYMPH NODES: No lymphadenopathy. VASCULAR: Normal caliber abdominal aorta. PELVIC VISCERA: Unremarkable. OSSEOUS STRUCTURES: Grade 1/2 anterolisthesis of L5 on S1 with bilateral L5 pars defects. CT/CT abdomen pelvis w IV con IMPRESSION: 1. The appendix measures 7-8 mm in diameter with mild periappendiceal fat stranding suggesting acute appendicitis in the appropriate clinical context. 2. No evidence of free air or organized extraluminal collection. Dictated By: Teresa zAar Signed By: Electronically signed by Teresa Azar 10/21/23 0704 Radiology Impression Discussion of test interpretation with radiology: I have reviewed the radiologist's reading. Critical Care Time Critical Care Time Critical Care Time: Yes Total Critical Care Time: 45 Attestation: I spent 45 minutes of Critical Care Time with this patient. This does not include time spent on separately reported billable procedures. Discharge Plan Discharge Clinical Impression: Acute appendicitis Patient Disposition: Admitted As Inpatient
[2023-10-25 08:15] VITALS: BP 156/84; PULSE 100; RESP 20; TEMP 38; O2SAT 96; BMI 47.2
[2023-10-25 09:10] VITALS: BP 127/79; PULSE 89; RESP 20; O2SAT 98
--- NOTE | 2023-10-25 09:20 | PC.NURSE ---
Addendum entered by Blanca Jenkins 10/25/23 10:50: pt reports feeling dizzy Original Note: pt alert and oriented, skin slightly pale in color, respirations even and unlabored, ls clear, abd soft but tender on the right lower region, bowel sounds active in all 4 quadrants, plan to go to surgery later this evening for appendicitis. pt was seen in the ED on Sunday and questing appendicitis at that time.
--- NOTE | 2023-10-25 09:30 | PM.HPGS ---
History of Present Illness History of Present Illness Date of Service: 10/25/23 Chief complaint: Appendicitis ? Narrative: Ron Carlos is a 33 year old male presenting with complaints of abdominal pain in the right lower quadrant right upper quadrant of 3-4 days duration. Was previously evaluated in the emergency department and thought to possibly have early appendicitis. He was subsequently discharged to home with follow-up in the office yesterday. Since his evaluation in the office yesterday the pain is increased in the right lower quadrant and right upper quadrant and is associated with dizziness, nausea without vomiting, fever and chills. He returns to the emergency department for further evaluation. In the emergency department he was noted to be tender in the right lower quadrant right upper quadrant with stable vital signs. Laboratories revealed a normal WBC. He is admitted to the surgical service for further management of the abdominal pain possible acute appendicitis. Review of Systems Review of Systems: Yes all other systems are reviewed and are negative Constitutional: Constitutional: Reports poor appetite Gastrointestinal: Gastrointestinal: Reports abdominal pain, Reports nausea and Denies vomiting PMFSH Surgical History Surgical History [place] teeth extracted Social History Social History Unable to assess alcohol history related to: Unknown Alcohol intake: never Smoked in Last 30 Days: No Use of substances other than those prescribed or required for medical reasons: Yes Substance Use Type: Marijuana Substance Use Frequency: Occasionally Advance Directives: No Meds Allergies Allergy/AdvReac Type Severity Reaction Status Date / Time No Known Allergies Allergy Verified 10/25/23 08:15 [No Known Allergies*] Home Medications Medication Instructions Recorded Confirmed Last Taken Type sertraline 50 mg tablet 50 mg PO DAILY 10/24/23 Unknown History Physical Exam Vital Signs: Vital Signs: Last Vital Signs Temp 100.4 F 10/25/23 08:15 Pulse 89 10/25/23 09:10 Resp 20 10/25/23 09:10 BP 127/79 10/25/23 09:10 Pulse Ox 98 10/25/23 09:10 O2 Del Method Room Air 10/25/23 09:10 BMI result Body Mass Index 47.2 Const: General: cooperative and no acute distress Nutritional Appearance: well nourished Orientation/consciousness: patient oriented x3 Limitations: no limitations HEENT: Head: Yes normocephalic and Yes atraumatic Ears: hearing grossly normal bilaterally Resp: Effort & Inspection: normal respiratory effort, no audible wheezes, no cough and no respiratory distress Cardio: Jugular venous distension: no JVD GI: Inspection: Yes normal to inspection Palpation (GI): Soft to palpation, Tenderness to palpation present (GI) in the RLQ, in the RUQ and at McBurney's point; Holman's sign negative, no guarding and not rigid Percussion: Yes normal to percussion Auscultation: normal bowel sounds Rectal Exam - Male: Yes deferred Skin: Other: Warm, dry, no rash Neuro: General: patient oriented x3 Extrem: General: Yes no clubbing, cyanosis or edema Results Results Labs: Short CBC 10/25/23 Range/Units 08:39 WBC 6.6 (4.8-10.8) X10*3/uL Hgb 13.6 L (14.0-18.0) g/dl Hct 41.4 L (42.0-52.0) % Plt Count 263 (160-400) X10*3/uL BMP 10/25/23 08:39 Sodium 137 Potassium 3.9 Chloride 105 Carbon Dioxide 25 BUN 9 Creatinine 0.95 Calcium 9.4 Liver Function 10/25/23 Range/Units 08:39 Total Bilirubin 0.4 (0.0-1.0) mg/dL AST 19 (5-37) U/L ALT 30 (0-40) U/L Alkaline Phosphatase 77 (39-117) U/L Albumin 4.4 (3.5-5.0) g/dL Assessment and Plan (1) Acute appendicitis: Qualifiers: Acute appendicitis type: with localized peritonitis Appendicitis gangrene presence: without gangrene Appendicitis perforation presence: without perforation Appendicitis abscess presence: without abscess Qualified Code(s): K35.30 - Acute appendicitis with localized peritonitis, without perforation or gangrene Status: Acute Plan 33-year-old male patient with persistent abdominal pain in the right lower quadrant found on examination to be tender in the right lower quadrant without rebound, guarding or rigidity. CT abdomen and pelvis from previous visit to the emergency department did revealed early appendicitis changes. His symptoms have worsened since then and he now reports fever chills, nausea without vomiting. After reviewing the previous CT and patient's ongoing symptoms, I recommended proceeding to a laparoscopic or possible open appendectomy. After discussion of the procedure, risks, and alternatives, he consents to the surgery. He has been added onto the operative schedule for today. Quality Stroke Does the patient have a stroke diagnosis?: No VTE Prior VTE?: No VTE Risk Level:: Surgical - low VTE Device Contraindication: Treatment Not Indicated VTE Drug Contraindication: Treatment Not Indicated Procedures Date of Service Date of Service: 10/25/23
--- NOTE | 2023-10-25 10:10 | PHA.MEDREC ---
Pharmacy Consult ? Medication Reconciliation Pharmacy has completed the medication reconciliation.
[2023-10-25 11:10] VITALS: BP 104/61; PULSE 78; RESP 16; O2SAT 94
--- NOTE | 2023-10-25 12:22 | HO.PM.IMCN ---
History of Present Illness Data of Consult Service Date: 10/25/23 Primary Care Provider: Paul Butler MD [facility] Reason for consult: COVID+ Patient is a 33-year-old male with no significant PMH who initially presented to the ED on 10/21/2023 with right lower quadrant abdominal pain. Patient was diagnosed with likely early appendicitis not in need of emergent surgical removal. Pt was discharged home with plan to follow up outpatient and told to return to ED if pain persists or worsens. He reports pain has waxed and waned some since initial ED visit: initially improved first day after discharge but then worsened some the following day. Yesterday abdominal pain felt better and he was seen in the general surgery office for followup where he has a relatively benign exam. Reports that this morning he spiked a fever of 101 degrees and had chills, lightheadedness, nausea, and a headache, and decided to come in to the ED for further evaluation. No increase in abdominal pain. In the ED pt's labs significant for testing positive for COVID, otherwise CBC and BMP grossly unremarkable. Vitals stable and WNL, including satting at 98% on RA. Hospitalist consult for medical management of COVID infection. Pt currently states he feels much better. Denies SOB or cough. Currently no nausea or lightheadedness. Complains of dull RUQ abdominal pain rated 4/10 (and 8/10 on 10/21/23 when initially presented to ED). Reports last tested positive for COVID around a year ago. Has been fully vaccinated with 2-3 boosters with last booster in 07/2023. Review of Systems Review of Systems: RUQ abdominal pain, dull, rated 4/10 Fever, chills Lightheadedness Nausea, no vomiting Denies chest pain/pressure No sharp or shooting abd pain PMFSH Surgical History [place] teeth extracted Social History Household Members: Spouse Housing: Apartment Do you presently have visiting nurse or other home services: No Unable to assess alcohol history related to: Unknown Alcohol intake: never Patient Tobacco Use Status: Never used Tobacco Smoked in Last 30 Days: No Use of substances other than those prescribed or required for medical reasons: Yes Substance Use Type: Marijuana Substance Use Frequency: Occasionally Last Used Substance Other:: 10/24/23 Currently Displaying Signs/Symptoms of Drug Intoxication Withdrawal: No Any prior treatment program specific to substance use: No Have you been hit, kicked, punched, or otherwise hurt by someone within the past year? If so, by whom?: No Do you feel safe in your current relationship?: No Is there a partner from a previous relationship who is making you feel unsafe now?: No Are you made to feel afraid or neglected: No Advance Directives: No Advance Directives Information Provided: No (Declined) Do you have thoughts of harming others: None Do you have a plan to hurt others: No Plan Recently lost weight without trying: No Eating poorly because of decreased appetite: No Nutrition Risks: No Nutritional Risk Poor oral hygiene: No Meds Allergies Allergy/AdvReac Type Severity Reaction Status Date / Time No Known Allergies Allergy Verified 10/25/23 08:15 [No Known Allergies*] Active Medications: Current Medications Hydromorphone HCl (Hydromorphone Hcl 0.5 Mg/0.5 Ml Syringe) 0.5 mg IVPUSH Q3H PRN; Protocol PRN Reason: Pain, Severe (Pain Scale 7-10) Acetaminophen (Ofirmev) 1,000 mg in 100 mls @ 400 mls/hr IV Q6H [facility] Stop: 10/26/23 03:44 Last Infusion: 10/25/23 10:28 Dose: Infused Piperacillin Sod/Tazobactam (Sod 3.375 gm/ Sodium Chloride) 50 mls @ 100 mls/hr IV Q6H [facility] Last Infusion: 10/25/23 10:45 Dose: Infused Ondansetron HCl (Ondansetron Hcl 4 Mg/2 Ml Vial) 4 mg IVPUSH QID PRN PRN Reason: Nausea Zolpidem Tartrate (Zolpidem Tartrate 5 Mg Tablet) 5 mg PO BEDTIME PRN PRN Reason: Insomnia Home Medications Medication Instructions Recorded Confirmed Last Taken Type sertraline 50 mg tablet 50 mg PO DAILY 10/24/23 10/25/23 10/25/22 History Physical Exam Vital Signs and Narrative: Vital Signs: Last Vital Signs Temp 100.4 F 10/25/23 08:15 Pulse 78 10/25/23 11:10 Resp 16 10/25/23 11:10 BP 104/61 10/25/23 11:10 Pulse Ox 94 10/25/23 11:10 O2 Del Method Room Air 10/25/23 11:10 BMI result Body Mass Index 47.2 General: AOx3, no acute distress Resp: CTA bilaterally CVS: S1, S2, RRR GI: +BS, no distention, mild RUQ tenderness Skin: Warm, dry Neuro: Cranial nerves II-XII grossly intact bilaterally. Motor grossly intact bilaterally Extremities: No edema Psych: Appropriate affect Results Labs 10/25/23 08:39 10/25/23 08:39 Labs: Laboratory Results - last 24 hr 10/25/23 08:39 MCV 79.2 L MCH 26.0 L MCHC 32.9 RDW 14.0 Plt Count 263 MPV 10.0 Immature Gran % (Auto) 0.2 Neut % (Auto) 81.8 H Lymph % (Auto) 7.0 L [place] % (Auto) 9.4 Eos % (Auto) 1.1 Baso % (Auto) 0.5 Lymph # (Auto) 0.5 L [place] # (Auto) 0.6 Eos # (Auto) 0.1 Baso # (Auto) 0.0 Abs Immat Gran (auto) 0.01 Absolute Neuts (auto) 5.4 Absolute Nucleated RBC 0.000 Nucleated RBC % (auto) 0.0 Anion Gap 11 L Estim Creat Clear Calc 159.9 Estimated GFR > 60 Random Glucose 102 Lactic Acid 0.7 Calcium 9.4 Magnesium 1.6 Total Bilirubin 0.4 AST 19 ALT 30 Alkaline Phosphatase 77 Total Protein 7.6 Albumin 4.4 Influenza Type A (PCR) NEGATIVE Influenza Type B (PCR) NEGATIVE RSV RNA Qual (PCR) NEGATIVE SARS-CoV-2 RNA (RT-PCR) POSITIVE A Assessment and Plan (1) Acute appendicitis: Qualifiers: Acute appendicitis type: with localized peritonitis Appendicitis abscess presence: without abscess Appendicitis gangrene presence: without gangrene Appendicitis perforation presence: without perforation Qualified Code(s): K35.30 - Acute appendicitis with localized peritonitis, without perforation or gangrene Status: Acute (2) COVID: Status: Acute Plan Patient is a 33-year-old male with no significant PMH who initially presented to the ED on 10/21/2023 with right lower quadrant abdominal pain. Pt was being treated outpatient for appendicitis when he re-presented to the ED with fever, chills, lightheadedness, and nausea. In the ED pt tested positive for COVID. Fever, chills, lightheadedness, nausea, headache Etiology unclear: COVID infection vs worsening appendicitis Acute appendicitis Plan as per general surgery COVID infection Pt is not hypoxic, lungs CTA, pt without significant comorbidities No medical intervention for COVID indicated at this time Treat symptomatically with Tylenol for fever, anti-emetics for nausea Mood disorder Continue sertraline Attending: Dr. Najera Thank you for allowing us to participate in the care of this patient. Signing off at this time. Please re-consult if any acute complaints or issues arise.
[2023-10-25 14:07] VITALS: BP 107/66; PULSE 75; RESP 16; TEMP 37; O2SAT 97
[2023-10-25 16:00] VITALS: BP 110/68; PULSE 73; RESP 16; TEMP 36.9; O2SAT 98
[2023-10-25 21:59] VITALS: BP 108/70; PULSE 76; RESP 16; TEMP 37.1; O2SAT 97
[2023-10-26 04:00] VITALS: BP 111/52; PULSE 56; RESP 20; TEMP 36.4; O2SAT 96
[2023-10-26 08:00] VITALS: BP 133/88; PULSE 70; RESP 16; TEMP 36.6; O2SAT 94
--- NOTE | 2023-10-26 08:04 | PM.PNGS ---
Subjective Subjective Date of Service: 10/26/23 Interval history: COVID positive, denies cough or shortness of breath Abdominal pain is much improved this morning. He apparently was not given a diet last night. Denies nausea or vomiting. Physical Exam Vital Signs: Vital Signs: Last Vital Signs Temp 97.5 F 10/26/23 04:00 Pulse 56 10/26/23 04:00 Resp 20 10/26/23 04:00 BP 111/52 L 10/26/23 04:00 Pulse Ox 96 10/26/23 04:00 O2 Del Method Room Air 10/26/23 04:00 BMI result Body Mass Index 47.2 Const: General: no acute distress Nutritional Appearance: well nourished Orientation/consciousness: patient oriented x3 Limitations: no limitations HEENT: Head: Yes normocephalic and Yes atraumatic Resp: Effort & Inspection: normal respiratory effort, no audible wheezes, no cough and no respiratory distress GI: Inspection: Yes normal to inspection Palpation (GI): Soft to palpation, nontender, no guarding and not rigid Skin: General skin exam: no rashes or lesions noted Neuro: General: patient oriented x3 Extrem: General: Yes no clubbing, cyanosis or edema Objective Data Active Medications Hydromorphone HCl (Hydromorphone Hcl 0.5 Mg/0.5 Ml Syringe) 0.5 mg IVPUSH Q3H PRN; Protocol PRN Reason: Pain, Severe (Pain Scale 7-10) Ondansetron HCl (Ondansetron Hcl 4 Mg/2 Ml Vial) 4 mg IVPUSH QID PRN PRN Reason: Nausea Last Admin: 10/25/23 23:47 Dose: 4 mg Documented By: AMANDA Sertraline HCl (Sertraline Hcl 50 Mg Tablet) 50 mg PO DAILY [facility] Last Admin: 10/26/23 07:54 Dose: 50 mg Documented By: HILARIO Sodium Chloride (0.9 % Sodium Chloride Flush 3 Ml Syringe) 3 ml IVFLUSH QSHIFT [facility] Last Admin: 10/26/23 07:54 Dose: 3 ml Documented By: HILARIO Zolpidem Tartrate (Zolpidem Tartrate 5 Mg Tablet) 5 mg PO BEDTIME PRN PRN Reason: Insomnia Labs 10/25/23 08:39 10/25/23 08:39 Labs: Laboratory Results - last 24 hr 10/25/23 08:39 MCV 79.2 L MCH 26.0 L MCHC 32.9 RDW 14.0 Plt Count 263 MPV 10.0 Immature Gran % (Auto) 0.2 Neut % (Auto) 81.8 H Lymph % (Auto) 7.0 L [place] % (Auto) 9.4 Eos % (Auto) 1.1 Baso % (Auto) 0.5 Lymph # (Auto) 0.5 L [place] # (Auto) 0.6 Eos # (Auto) 0.1 Baso # (Auto) 0.0 Abs Immat Gran (auto) 0.01 Absolute Neuts (auto) 5.4 Absolute Nucleated RBC 0.000 Nucleated RBC % (auto) 0.0 Anion Gap 11 L Estim Creat Clear Calc 159.9 Estimated GFR > 60 Random Glucose 102 Lactic Acid 0.7 Calcium 9.4 Magnesium 1.6 Total Bilirubin 0.4 AST 19 ALT 30 Alkaline Phosphatase 77 Total Protein 7.6 Albumin 4.4 Influenza Type A (PCR) NEGATIVE Influenza Type B (PCR) NEGATIVE RSV RNA Qual (PCR) NEGATIVE SARS-CoV-2 RNA (RT-PCR) POSITIVE A Procedures Date of Service Date of Service: 10/26/23 Progress Note: A&P Assessment and plan (1) COVID: Status: Acute Plan 33-year-old male patient presenting with mild abdominal pain in the right lower quadrant associated with fever, chills admitted to the surgical service for treatment of COVID 19 and to rule out appendicitis. Workup with CT abdomen and pelvis several days ago revealed some mild changes suggestive of possible early appendicitis however laboratories remain normal and is abdominal exam is much improved today with no further tenderness in the right lower quadrant. Patient will take a regular diet this morning. Awaiting a.m. laboratories. If diet is tolerated and laboratories remain normal, patient will be discharged to home. Time Spent With Patient Time: Total time managing care of this patient today ____ minutes. Quality Stroke Does the patient have a stroke diagnosis?: No VTE Prior VTE?: No VTE Risk Level:: Surgical - low VTE Device Contraindication: N/A - Device Ordered VTE Drug Contraindication: Treatment Not Indicated
[2023-10-26 08:56] LABS: Anion Gap 13 (12-20); Blood Urea Nitrogen 10 mg/dL (9-16); Calcium 9.4 mg/dL (8.4-10.2); Carbon Dioxide 27 mmol/L (22-29); Chloride 104 mmol/L (96-108); Creatinine Clr Calc Pharmacy 163.4; Estimated Glomerular Filt Rate > 60; Glucose Random 81 mg/dL (60-115); Potassium 3.9 mmol/L (3.3-5.1); Sodium 140 mmol/L (135-145)
--- NOTE | 2023-10-26 10:25 | MHC.CM.PN ---
Tri 10/26/23, Pt is independent, does not use home health services or med equipment. HCP form given here. His is bedside, will drive him home upon DC. PCP: Dr. Butler. CM to follow and assist as needed with DC plan.
--- NOTE | 2023-10-30 15:22 | P.DS_ITS ---
DS: Providers Provider Date of Service: 10/26/23 Date of admission: 10/25/23 14:19 Date of discharge: 10/26/23 Primary care physician: Paul Butler MD Admitting clinician: Neno Lund Consults: 10/25/23 15:53 Consult to Hospitalist Routine Comment: Consulting Provider: Hospitalist Reason For Exam: COVID-19 infection, abdominal pain Discharging clinician: Neno Lund DS: Diagnosis Discharge Diagnosis (1) COVID: Status: Acute DS: Summary Hospital Course Hospital Course: Ron Carlos is a 33 year old male presenting with complaints of abdominal pain in the right lower quadrant right upper quadrant of 3-4 days duration. Was previously evaluated in the emergency department and thought to possibly have early appendicitis. He was subsequently discharged to home with follow-up in the office yesterday. Since his evaluation in the office yesterday the pain is increased in the right lower quadrant and right upper quadrant and is associated with dizziness, nausea without vomiting, fever and chills. He returns to the emergency department for further evaluation. In the emergency department he was noted to be tender in the right lower quadrant right upper quadrant with stable vital signs. Laboratories revealed a normal WBC. He is admitted to the surgical service for further management of the abdominal pain possible acute appendicitis. On examination the patient had some mild tenderness in the right upper quadrant without rebound, guarding or rigidity. Subsequent laboratories revealed the pa tient to be positive for COVID. This was felt to be the cause of the patient's abdominal pain rather than appendicitis. He was therefore admitted for observation. By the 2nd hospital day the patient felt much improved with no further abdominal pain. He was advanced to regular diet and tolerated this without increased abdominal pain, nausea or vomiting. Patient was subsequently discharged to home in stable condition on 10/26/2023. He should resume his normal medications and follow-up as needed. Time spent discussing smoking cessation with patient: 3 to 10 minutes Status at Discharge Functional status at discharge: independent ambulation Overall status at discharge: patient is back to baseline Time Attestation Discharge coordination time: Less than 30 minutes Quality: Safe Use of Opioids Does Pt have an Active Cancer Diagnosis on the Problem List?: No Quality: Stroke Does the patient have a stroke diagnosis?: No Physical Exam Vital Signs: Vital Signs: Last Vital Signs Temp 97.9 F 10/26/23 08:00 Pulse 70 01/05/24 08:00 Resp 16 10/26/23 08:00 BP 133/88 10/26/23 08:00 Pulse Ox 94 10/26/23 08:00 O2 Del Method Room Air 10/26/23 08:00 BMI result Body Mass Index 47.2 Const: General: no acute distress Nutritional Appearance: well nourished Orientation/consciousness: patient oriented x3 Limitations: no limitations HEENT: Head: Yes normocephalic and Yes atraumatic Resp: Effort & Inspection: normal respiratory effort, no audible wheezes, no cough and no respiratory distress GI: Inspection: Yes normal to inspection Palpation (GI): Soft to palpation, nontender, no guarding and not rigid Skin: General skin exam: no rashes or lesions noted Neuro: General: patient oriented x3 Extrem: General: Yes no clubbing, cyanosis or edema DS: Data Data Completed and Pending Completed studies during hospitalization [Text1]: CT abdomen and pelvis Discharge Plan Discharge Anticipated Discharge Date/Time: 10/26/23 11:20 Patient Disposition: Home, Self-Care Referrals: Paul Butler MD [Primary Care Provider] - 1 Week Neno Lund MD [Physician] - 2 Weeks Discharge Medications: Continued sertraline 50 mg tablet 50 mg PO DAILY Discharge Orders: Discharge Order (Routine); Ordered 10/26/23 Ordered By: Neno Lund Diet: Advance to usual diet Activity on Discharge: As tolerated Stand Alone Forms: Patient Portal Discharge page Care Plan Goals: Return to normal activity and diet. Health Concerns: Fever, chills, abdominal pain Plan of Treatment: Treated with bowel rest. Abdominal pain has resolved Assessment: COVID-19 Discharge Date/Time: 10/26/23 12:12
== END 2023-10-26 12:12 | disposition home or self-care (01) ==
LOC: HO.ED 10:00 → HO.EDOVER 14:31 → HO.IMC 20:47
PROVIDERS: Admitting Provider Surgery; Emergency Provider Student in an Organized Health Care Education/Training Program; PCP Internal Medicine; Visit Provider Surgery
DX: U07.1 COVID-19 (principal); K35.30 Acute appendicitis with localized peritonitis, without perforation or gangrene; R10.31 Right lower quadrant pain; R42 Dizziness and giddiness; F39 Unspecified mood [affective] disorder
CPT/HCPCS: 0241U; 36415; 80048; 80053; 83605; 83735; 85025; 87040; 96365; 96366; 96367; 96368; 96375; 96376; 99222; 99285; J0131; J2270; J2405; J2543

== ENCOUNTER → 2023-10-25 08:34 | Outpatient (BNV) | payer OTHER, SELFPAY | PROVIDERS: Emergency Provider Student in an Organized Health Care Education/Training Program; PCP Internal Medicine; Visit Provider Surgery | DX: U07.1 COVID-19 (principal) | CPT/HCPCS: 99222; 99238 ==

== ENCOUNTER → 2023-10-25 14:19 | Outpatient (BNV) | payer OTHER, SELFPAY | PROVIDERS: Admitting Provider Surgery; Emergency Provider Student in an Organized Health Care Education/Training Program; PCP Internal Medicine; Visit Provider Student in an Organized Health Care Education/Training Program | DX: U07.1 COVID-19 (principal); K35.30 Acute appendicitis with localized peritonitis, without perforation or gangrene | CPT/HCPCS: 99222 ==

== ENCOUNTER 2024-07-02 19:47 | Emergency (ER) | payer OTHER, SELFPAY ==
[2024-07-02 19:49] VITALS: BP 133/78; PULSE 77; RESP 16; TEMP 36.3; O2SAT 97; BMI 43.8
--- NOTE | 2024-07-02 19:52 | ED_ITS ---
HPI - General Adult General Stated complaint: stepped on a nail Time Seen by Provider: 07/02/24 19:51 Source: patient Mode of arrival: ambulatory Limitations: no limitations History of Present Illness ED Provider: Geetha NEUMANN HPI narrative: This is a 33-year-old male presenting status post stepping on a nail just prior to arrival, he reports he pulled the nail out however he is not up-to-date on tetanus shot and would like to be up-to-date on it. He is not a diabetic. Denies numbness, tingling. No bleeding from the site. No fevers or chills. Related Data Home Medications ?Medication ?Instructions ?Recorded ?Confirmed sertraline 50 mg tablet 50 mg PO DAILY 10/24/23 10/25/23 Previous Rx's ?Medication ?Instructions ?Recorded amoxicillin 875 mg-potassium 1 tab PO BID 7 days #14 tabs 07/02/24 clavulanate 125 mg tablet Allergies Allergy/AdvReac Type Severity Reaction Status Date / Time No Known Allergies Allergy Verified 07/02/24 19:53 [No Known Allergies*] Review of Systems Review of Systems: Yes all other systems are reviewed and are negative [facility] Past Medical History Attestation statement: The following information was validated with the patient. Source: old records reviewed and nursing notes reviewed Surgical History [place] teeth extracted Social History Social History Household Members: Spouse Housing: Apartment Do you presently have visiting nurse or other home services: No Unable to assess alcohol history related to: Unknown Alcohol intake: never Patient Tobacco Use Status: Never used Tobacco Substance Use Type: Marijuana service: No Physical Exam ED Vital Signs: vss Appearance: Alert.? Oriented X3.? No acute distress.? Head: Normocephalic, atraumatic, no step-offs or deformities CVS: Pulses normal.? Respiratory: No respiratory distress.? Skin: Skin warm and dry.? Normal skin color.? Normal skin turgor.? Extremities: No lower extremity edema.? No calf ttp. 5/5 strength to bilateral upper and lower extremities + 2+ Dp,AT,PT pulses equal and b/l. Normal distal sensation. No foot drop. Small puncture wound to the lateral aspect of left foot no FB visualized no bleeding Neuro: Oriented X 3.? No motor deficit.? No sensory deficit. CN 2-12 intact Medical Decision Making Medical Decision Making [facility] Narrative: 1950 33-year-old male presents status post stepping on a nail his left foot affected. Physical exam No lower extremity edema.? No calf ttp. 5/5 strength to bilateral upper and lower extremities + 2+ Dp,AT,PT pulses equal and b/l. Normal distal sensation. No foot drop. Small puncture wound to the lateral aspect of left foot no FB visualized no bleeding History and physical exam concerning for puncture wound to the bottom of the foot. Nail was not cyril. It did not go through shoe unlikely Pseudomonas. Unlikely fracture, dislocation, neurovascular compromise, acute threat to limb. Plan will discharge patient with tetanus shot and antibiotics. Educated patient on diagnosis and treatment plan, answered all question, patient verbalizes understanding. At this time patient will be discharged home, advised to return with new or worsening symptoms. Educated on worrisome signs and symptoms and when to return. At this time I feel comfortable discharge home. Differential Diagnosis Differential Diagnoses: The differential diagnosis associated with the presentation includes History and physical exam concerning for puncture wound to the bottom of the foot. Nail was not cyril. It did not go through shoe unlikely Pseudomonas. Unlikely fracture, dislocation, neurovascular compromise, acute threat to limb. Admission/Observation Consideration of admission/observation: Escalation of care including admission/observation considered unlikely External Record Review External record reviewed: Office record, Outpatient record, Prior outpatient labs, Prior outpatient radiology and Primary care record Prescription Management I considered prescription management with: Antibiotic Discharge Plan Discharge Clinical Impression: Puncture wound Patient Disposition: Home, Self-Care Additional Instructions: Take your medications as prescribed. If you were prescribed antibiotics today, it is important that you take your medication to their entirety, do not skip any doses, do not finish them early. Follow-up with your primary care provider this week. Return to the emergency department with new or worsening symptoms. Such as fevers, chills, chest pain, shortness of breath, nausea, vomiting, dizziness, headache, vision changes, lethargy In case of emergency call 911 Prescriptions: New amoxicillin-pot clavulanate 875-125 mg tablet 1 tab PO BID 7 Days Qty: 14 0RF No Action sertraline 50 mg tablet 50 mg PO DAILY Referrals: Paul Butler MD [Primary Care Provider] - 2 days Print Language: Congolese
[2024-07-02] MEDS: Diphth,Pertus(ACell),Tet Adult 0.5 ML SYRINGE IM (19:56)
[2024-07-02 20:04] VITALS: BP 133/78; PULSE 77; RESP 16; TEMP 36.3; O2SAT 97
== END 2024-07-02 20:05 | disposition home or self-care (01) ==
LOC: HO.ED 20:04
PROVIDERS: Emergency Provider Internal Medicine; PCP Internal Medicine
DX: S91.332A Puncture wound without foreign body, left foot, initial encounter (principal); W45.0XXA Nail entering through skin, initial encounter; Y93.9 Activity, unspecified; Y92.9 Unspecified place or not applicable; Y99.9 Unspecified external cause status; Z23 Encounter for immunization
CPT/HCPCS: 90471; 90715; 99282; 99284

== ENCOUNTER 2025-09-04 08:28 | Outpatient (REF) | payer OTHER, SELFPAY ==
[2025-09-04 13:10] LABS: Appearance Urine Clear; Glucose Urine UA Negative (Negative); PH 6.0 (5.0-9.0); Specific Gravity - Urine 1.015 (1.005-1.025)
[2025-09-04 13:29] LABS: MANUAL DIFF FLAG NO
[2025-09-04 13:39] LABS: Hematocrit 44.3 % (42.0-52.0); Hemoglobin 14.5 g/dl (14.0-18.0); Imm Gran Abs Auto 0.02 X10*3/uL (0.00-0.03); Imm Gran Pct Auto 0.3 % (0.0-0.4); Lymphocytes Absolute Auto 1.5 X10*3/uL (1.2-4.9); Mean Corpuscular HGB Conc 32.7 g/dl (31.0-36.0); Mean Corpuscular Hemoglobin 27.3 pg (27.0-33.0); Mean Corpuscular Volume 83.3 fL (80.0-98.0); NRBC Abs Auto 0.000 X10*3/uL (0.0-0.012); NRBC Pct Auto 0.0 /100WBC (0.0-0.2); Platelet Count 291 X10*3/uL (160-400); Red Blood Count 5.32 X10*6/uL (4.60-5.80); White Blood Count 7.7 X10*3/uL (4.8-10.8)
[2025-09-04 14:09] LABS: Alanine Aminotransferase 39 U/L (0-40); Albumin Level 5.1 g/dL (3.5-5.0); Alkaline Phosphatase 95 U/L (39-117); Anion Gap 13 (12-20); Aspartate Amino Transferase 32 U/L (5-37); Blood Urea Nitrogen 13 mg/dL (9-16); Calcium 10.2 mg/dL (8.4-10.2); Carbon Dioxide 27 mmol/L (22-29); Chloride 103 mmol/L (96-108); Cholesterol 154 mg/dL (<200); Estimated Glomerular Filt Rate > 60; HDL Cholesterol 46 mg/dL (>40); Magnesium 2.2 mg/dL (1.6-2.6); Potassium 4.4 mmol/L (3.3-5.1); Sodium 139 mmol/L (135-145); Total Protein 8.1 g/dL (6.5-8.0); Triglycerides 105 mg/dL (<150)
[2025-09-04 14:42] LABS: Folate 10.6 ng/mL (> or = 4.0); Vitamin B12 167 pg/mL (200-900)
[2025-09-04 14:50] LABS: HBS Num1 2.59 mIU/mL (0-7.99); HBsAGNum1 0.49 S/CO (0.00-0.99); HIV Num 1 0.13 S/CO (0.00-0.99); Hepatitis B Surface Antigen Negative (Negative); ~HepC Num1 0.12 S/CO (0.00-0.79); ~Hepatitis B Surface Antibody NONREACTIVE (Nonreactive); ~Hepatitis C Antibody Nonreactive (Nonreactive)
[2025-09-10 00:09] LABS: VITAMIN D (1,25 OH) D3 40 pg/mL; Vit D (1,25-Dihydroxy) Total 40 pg/mL (18-72); Vitamin D (1,25 OH) D2 <8 pg/mL
== END 2025-09-04 08:29 | disposition home or self-care (01) ==
LOC: HO.HKASLDS 08:28
PROVIDERS: PCP Student in an Organized Health Care Education/Training Program; Visit Provider Student in an Organized Health Care Education/Training Program
DX: E66.01 Morbid (severe) obesity due to excess calories (principal); F41.9 Anxiety disorder, unspecified; F32.A Depression, unspecified; Q21.12 Patent foramen ovale; F64.9 Gender identity disorder, unspecified; Z86.73 Personal history of transient ischemic attack (TIA), and cerebral infarction without residual deficits; Z91.52 Personal history of nonsuicidal self-harm; Z91.89 Other specified personal risk factors, not elsewhere classified; Z86.59 Personal history of other mental and behavioral disorders; Z68.41 Body mass index [BMI] 40.0-44.9, adult
CPT/HCPCS: 36415; 80053; 80061; 81003; 82607; 82652; 82746; 83036; 83735; 84443; 85025; 86706; 86803; 87340; 87389; 99202

== ENCOUNTER 2025-09-04 08:28 | Outpatient (AMB) | payer OTHER, SELFPAY ==
--- OUTSIDE RECORDS SUMMARY | 2025-09-04 08:38 | XMS_ITS | Clinical Summary ---
Author Organization [facility] Address [address] [place] [id number] Phone Care Team Providers Care Grease Monkey Name Role Phone Pcp, Unknown Primary Care Provider Unavailabl e Allergies No known active allergies Medications HYDROXYZINE HCL ORAL Take by mouth. Active Social History Tobacco Use Types Packs/Day Years Used Date Smoking Tobacco: Never Smokeless Tobacco: Never Alcohol Use Standard Drinks/Week Comments Never 0 (1 standard drink = 0.6 oz pur e alcohol) Education Answer Date Recorded Are you interested in more education? Not on lawrence e 02/16/2023 Are you concerned about learning? Not on file 02/16/2023 No 02/16/2023 No 02/16/2023 Digital Access Answer Date Recorded No 03/19/2023 No 03/19/2023 No 03/19/2023 Reliable internet access at home? Not on file 03/19/2023 Device with a working camera? Not on file Sex and Gender Information Value Date Recorded Sex Assigned at Male 10/17/2019 11:16 AM EST Legal Sex Male 8:58 PM EDT Gender Identity Male 10/17/2019 11:16 AM EST Sexual Orientation Bisexual 10/17/2019 11 :16 AM EST Last Filed Vital Signs Vital Sign Reading Time Taken Comments Blood Pressure 119/82 10/17/2019 11:14 AM EST Pulse 88 10/17/2019 11:14 AM EST Temperature 36.7 C (98.1 F) 10/17/2019 11:14 AM EST Respiratory Rate 22 10/17/2019 11:14 AM EST Oxygen Saturation 98% 10/17/2019 11:14 AM EST Inhaled Oxygen Concentration - - Weight 122.5 kg (270 lb) 10/17/2019 11:14 AM EST Height 177.8 cm (5' 10 ) 10/17/2019 11:14 AM EST Body Mass Index 38.74 10/17/2019 11:14 AM EST Plan of Treatment Not on file Medical Devices Not on file Insurance [place] Member Subscriber Plan / Payer (Ef fective 2020-Present) Name:Ron Carlos Relation to Subscriber:Self Name:Ron Carlos Payer ID:[id number] Group ID:Not on file Type:Medicaid Address: [address] [id number] [place] Member Sub[place] Plan / Payer (Ef fective 2020-Present) Name:Ron Carlos Relation to Subscriber:Self Name:Ron Carlos Payer ID:[id number] Group ID:Not on file Type:Medicaid Address: [address] [phone] [place] Sub[place] Plan / Payer (Ef fective 2020-Present) Name:Ron Carlos Relation to Subscriber:Self Name:Ron Carlos Payer ID:[id number] Group ID:Not on file Type:Medicaid Address: [address] [phone] [place] Member Subscriber Plan / Payer (Ef fective 2020-Present) Name:Ron Carlos Relation to Subscriber:Self Name:Ron Carlos Payer ID:[id number] Group ID:Not on file Type:Medicaid Address: [address] [phone] [place] Care Teams Grease Monkey Relationship Specialty Start Date End Date Pcp, Unknown PCP - General 10/17/19 Additional Source Comments The information contained in this document represents components of the legal health record. It is not the complete legal health record.[facility]
--- OUTSIDE RECORDS SUMMARY | 2025-09-04 08:38 | XMS_ITS | Clinical Summary ---
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 03/23/2023 Active acetaminophen (Tylenol) 500 MG tablet Take 1 tablet (500 mg) by mouth every 6 (six) hours if needed for mild pain for up to 20 doses. 20 tablet 02/06/2024 Active Active Problems Problem Noted Date Diagnosed Date Symptomatic irreversible pulpitis 02/06/2024 Secondary dental caries 08/28/2023 Dental calculus 03/16/2023 Social History Tobacco Use Types Packs/Day Years Used Date Smoking Tobacco: Never Passive Smoke Exposure: Never Smokeless Tobacco: Never Tobacco Cessation:Counseling Given: Not Answered Alcohol Use Standard Drinks/Week Comments Never 0 (1 standard drink = 0.6 oz pur e alcohol) Sex and Gender Information Value Date Recorded Sex Assigned at Male 03/16/2023 9:10 AM EDT Legal Sex Male 9:06 AM EDT Gender Identity Male 03/16/2023 9:10 AM EDT Sexual Orientation Choose not to disclose 2022 9:10 AM EDT Last Filed Vital Signs Vital Sign Reading Time Taken Comments Blood Pressure 138/110 05/16/2024 8:58 AM EDT Pulse 72 03/24/2024 8:08 AM EDT Temperature - - Respiratory Rate - - Oxygen Saturation - - Inhaled Oxygen Concentration - - Weight - - Height - - Body Mass Index - - Plan of Treatment Health Maintenance Due Date Last Done Comments Depression Screening 1992 HIV Screening 1992 SDOH Screening 1992 Disability Screening 1992 Alcohol/Substance Use Screening 2004 Family Planning (PISQ) 2007 HPV Vaccines (1 - Male 3-dose series) 2007 Hepatitis C Screening 2010 DTaP/Tdap/Td Vaccines (1 - Tdap) 2011 Hepatitis B Vaccines (1 of 3 - 19+ 3-dose series) 2011 Dental Oral Exam 08/29/2024 02/26/2024, 04/06/2023 Dental Prophylaxis 08/29/2024 02/26/2024, 04/06/2023 Dental X-Ray: Bitewings 05/01/2025 04/30/20 24, 02/26/2024, 04/06/2023 COVID-19 Vaccine ( season) 2025 09/06/2022, 08/07/2021, 02/08/2021, Additional history exists Influenza Vaccine (#1) 2025 Tobacco Screening 08/07/2025 08/07/2024 Dental X-Ray: Full Mouth 02/06/2027 02/06/2024, 02/20 Zoster Vaccines (1 of 2) 2042 RSV Patients and Patients Aged 60 years or older (1 - 1-dose 75+ series) 2067 HIB Vaccines Aged Out No longer eligi ble based on patient's age to complete this topic Hepatitis A Vaccines Aged Out No long er eligible based on patient's age to complete this topic IPV Vaccines Aged Out No longer eligi ble based on patient's age to complete this topic Meningococcal B Vaccine Aged Out No l onger eligible based on patient's age to complete this topic Meningococcal Vaccine Aged Out No gilson manny eligible based on patient's age to complete this topic Pneumococcal Vaccine: Pediatrics (0 to 5 Years) and At-Risk Patients (6 to 49) Years Aged Out No longer eligible based on patient's age to complete this topic RSV under 20 months Aged Out No longe r eligible based on patient's age to complete this topic Rotavirus Vaccines Aged Out No longer eligible based on patient's age to complete this topic Procedures Procedure Name Priority Date/Time Associated Diagnosis Comments BITEWING - SINGLE RADIOGRAPHIC IMAGE Routine 04/30/2024 9:00 AM EDT Full coverage crown needed for root canal-treated tooth PROPHYLAXIS - ADULT Routine 02/26/2024 3 :00 PM EDT Dental calculus Dental plaque PERIODIC ORAL EVALUATION - ESTABLISHED PATIENT Routine 02/26/2024 3:00 PM EDT Dental calculus Dental plaque Encounter for dental examination Dental caries Dental abscess Symptomatic irreversible pulpitis PANORAMIC RADIOGRAPHIC IMAGE Routine 02/06/2024 11:30 AM EDT from Last 3 Months or Most Recently Relevant to Health Maintenance [facility] ST[facility] AD[facility]
--- NOTE | 2025-09-04 08:45 | A.OFFPC_ITS ---
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: No Accompanied by: Self / Same As Patient Allergies No Known Allergies (No Known Allergies*) Allergy (Verified 09/04/25 08:45) Medication List - Last Reconciled 09/04/25 by Jeff Jalloh MD aspirin 1 tab PO QAM atorvastatin 50 mg PO DAILY sertraline 50 mg PO DAILY spironolactone 100 mg PO Tobacco use date assessed: 09/04/25 Dental Screening Dental Screen Date: 09/04/25 Did you have a dental visit in the last 12 months?: Yes Did you have a dental problem in the last 6 months where you did not have access to dental care?: Yes Was dental information given to patient?: Patient has dentist HPI HPI Comments History of Present Illness Details History of Present Illness The patient is a 34-year-old male presenting to [facility] care and for follow-up after a recent ischemic stroke. Ischemic Stroke: The patient experienced an ischemic stroke approximately one month prior to this visit, initially presenting to [facility] before being transferred to [facility]. He was placed on dual antiplatelet therapy with aspirin and clopidogrel and atorvastatin. The clopidogrel course was completed last week, and he is now on aspirin monotherapy, which his neurologist expects will be lifelong. He has since seen a neurologist at [facility] who was impressed with his recovery and noted no neurological deficits upon full assessment. Patent Foramen Ovale: During the stroke workup, a bubble study revealed a patent foramen ovale (PFO). The patient has seen a compensation adjuster and is scheduled for a PFO closure procedure on the of the month. He is scheduled to start a month-long event monitor on the Sunday preceding the procedure. Gender Dysphoria: The patient began his gender transition and started hormone replacement therapy (HRT) in April through [facility]. His regimen includes spironolactone 100 mg twice daily. He was previously on estrogen patches but had to discontinue them due to the stroke and must await clearance from his compensation adjuster and neurologist post-heart surgery to resume. Depression and Anxiety: The patient has a history of depression and anxiety, for which he takes sertraline. He has been in therapy for approximately five years and reports feeling stable. He reports a history of self-harm, mostly by burning, but not recently. His anxiety and PTSD were significantly exacerbated by an overdose event in 2010. Obesity: The patient reports a history of obesity but has lost approximately 60 pounds this year. His weight loss methods include portion control, intermittent fasting (no food after 8 p.m.), and increased physical activity such as walking and yard work to achieve 10,000 steps daily. History of Substance Abuse: In 2010, the patient had an overdose from unknowingly smoking synthetic cannabinoids (Spice/K2), which required hospitalization at [facility] over a weekend. This event led to severe PTSD and anxiety, along with chronic severe headaches for years, for which no cause was found at the time. He has not used marijuana since this incident. Surgical History: - Multiple root canals with crown placem ents Medications: - Aspirin: Lifelong for secondary stroke prevention. - Clopidogrel: Discontinued last week af ter completing a 21-30 day course post- stroke. - Atorvastatin (Lipitor): Dose unspecifi ed, for post-stroke management. - Sertraline: For depression and anxiety . - Spironolactone 100 mg twice daily: For hormone replacement therapy. 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 - Marital Status: . - Housing: Owns a house with his . - Substance Use: Never smoked cigarettes . - He stopped using marijuana entirely af ter a bad experience in 2010. - Exercise: Actively walks around his [facility] and does yard work to achieve about 10,000 steps daily. - Nutrition: Practices portion control a nd does not eat after 8:00 PM. - Sexual History: Patient is monogamous with his , his only sexual partner. Family History: - Paternal grandmother: History of signi ficant heart problems including three quadruple bypass surgeries, dementia, and early-onset Alzheimer's disease. - Younger brother: in infancy due t o a heart condition. - Grandfather: Atrial fibrillation. - Father's side of the family: History o f diabetes. Diagnostic Results: - Bubble study: Positive for a patent fo ramen ovale. - Neurological assessment (post-stroke): Normal, with no deficits. - Carotid ultrasound: The patient was to ld by his neurologist that his carotids look good, though discharge summary may have noted plaque. Past Medical History - Ischemic stroke about one month ago. - Patent foramen ovale, diagnosed after stroke. - Depression and anxiety, managed with s ertraline and therapy for ~5 years. - History of self-harm, primarily by gabino black. - Overdose on synthetic cannabinoids in 2010, resulting in hospitalization and subsequent PTSD. - Obesity, with recent significant weigh t loss of 60 lbs. Health Maintenance - Weight management: Patient has lost 60 pounds through diet (portion control, no food after 8 p.m.) and exercise (walking 10,000 steps). - Laboratory screening: Ordered a compre hensive panel including CBC, CMP, lipid panel, hemoglobin A1c, hepatitis B/C, HIV, thyroid studies, urine studies, B12, folate, and vitamin D. - Sexually transmitted disease screening : Offered for chlamydia, gonorrhea, and syphilis, which the patient declined. [facility] Medical History (Updated 09/04/25 @ 09:14 by Jeff Jalloh MD) History of posttraumatic stress disorder (PTSD) History of drug overdose Morbid obesity due to excess calories Gender dysphoria Patent foramen ovale Personal history of nonsuicidal self-harm Anxiety and depression History of ischemic stroke Surgical History [place] teeth extracted Family History (Updated 09/04/25 @ 08:46 by Abdulkadir Chavira MA) Father No problems noted. Mother No problems noted. Social History Household Members: Spouse Housing: House Do you presently have visiting nurse or other home services: No Alcohol intake: never Patient Tobacco Use Status: Never used Tobacco Substance Use Type: Marijuana service: No Current occupational status: employed Cognitive needs: No Hearing needs: No Vision needs: No Questionnaire PHQ-9 Over the last 2 weeks, how often have you been bothered by any of the following problems? 1. Little interest or pleasure in doing things: nearly every day 2. Feeling down, depressed, or hopeless: more than half the days 3. Trouble falling or staying asleep, or sleeping too much: not at all 4. Feeling tired or having little energy: more than half the days 5. Poor appetite or overeating: not at all 6. Feeling bad about yourself - or that you are a failure or have let yourself or your family down: several days 7. Trouble concentrating on things, such as reading the newspaper or watching television: more than half the days 8. Moving or speaking so slowly that other people could have noticed. Or the opposite - being so fidgety or restless that you have been moving around a lot more than usual: not at all 9. Thoughts that you would be better off or of hurting yourself in some way: several days Total score: 11 Depression Screening Interpretation: Positive Depression Screening Follow-up: In treatment Depression Screening Done: Yes Source: Developed by Drs. Charli Harrison, Amber Horne, Gabriel Fletcher and colleagues, with an educational jose luis from [employer]. Thrive Questionnaire Date Thrive assessed: 09/04/25 I am a: Patient What is your living situation today?: I have a steady place to live Within the past 12 months, did the food you bought not last and you didn't have the money to get more?: Never true Within the past 12 months, did you worry whether your food would run out before you got money to buy more?: Never true Do you have trouble paying for medicines?: No Do you have trouble getting transportation to medical appointments?: No Do you have trouble paying your heating and electricity bill?: Yes Do you have trouble taking care of your child, family member or friend?: No Do you have trouble with day-to-day activities such as bathing, preparing meals, shopping, managing finances, etc.?: No Are you currently unemployed and looking for a job?: No Are you interested in more education?: No Please select the resources that you would like help with: Utilities Currently or been in a relationship where the following occur: No concerns reported THRIVE Score: 1 AUDIT C Alcohol Use Questionnaire (AUDIT-C) 1. How often do you have a drink containing alcohol?: Monthly or less 2. How many drinks containing alcohol do you have on a typical day when you are drinking?: 1 or 2 3. How often do you have six or more drinks on one occasion?: Never Total Score: 1 JOLANTA-7 AMB Questionnaire JOLANTA-7 Date JOLANTA - 7 assessed: 09/04/25 Feeling nervous, anxious, or on edge: 3 = Nearly every day Not being able to stop or control worryin = Nearly every day Worrying too much about different things: 3 = Nearly every day Trouble relaxin = Nearly every day Being so restless that it is hard to sit still: 3 = Nearly every day Becoming easily annoyed or irritable: 0 = Not at all Feeling afraid as if something awful might happen: 3 = Nearly every day Total JOLANTA-7 score (0-4 normal; 5-9 mild; 10-14 moderate; 15-21 severe): 18 Source: Developed by Drs. Charli Harrison, Amber Horne, Gabriel Fletcher and colleagues, with an educational jose luis from [employer]. Review of Systems Narrative Review of Systems - Constitutional: Reports sleeping well, about 8 hours per night. - Neurological: Reports a history of severe headaches for years following a 2011 overdose, but is currently without neurological deficit after a recent stroke. - Psychiatric: Reports feeling stable on medications for depression and anxiety. - Reports a history of self-harm but denies any recent acts. - Gastrointestinal: Reports regular bowel movements once a day or every other day. - Denies constipation. 10-point ROS reviewed and negative except as noted in HPI Physical exam (Primary Care) Vital Signs: Last Vital Signs Temp 98.4 F 09/04/25 08:48 Pulse 73 09/04/25 08:48 Resp 16 09/04/25 08:48 BP 120/77 09/04/25 08:48 Pulse Ox 95 09/04/25 08:48 Oxygen Delivery Method Room Air 09/04/25 08:48 BMI result Body Mass Index 43.0 Tobacco/Smoking Status: Tobacco use Status Tobacco use date assessed 09/04/25 09/04/25 08:56 Patient Tobacco Use Status Never used Tobacco 09/04/25 08:56 PHQ-9: PHQ-9 Score PHQ-9: Total score 11 09/04/25 08:56 Depression Screening Interpretation: Positive Depression Screening Follow-up: In treatment Thrive Assessment: Date of Thrive Assessment Date Thrive assessed 09/04/25 09/04/25 08:56 Currently or been in a relationship where the following occur: No concerns reported Narrative Physical Exam General: Well-appearing, in no acute distress. Vital signs: Within normal limits. HEENT: Normocephalic, atraumatic. PERRLA, EOMI. Conjunctiva clear, sclera anicteric. Oropharynx clear, mucous membranes moist. TMs intact bilaterally. Neck: Supple, no lymphadenopathy, no thyromegaly, no JVD or carotid bruits. Cardiovascular: RRR, normal S1/S2, no murmurs, rubs, or gallops. Peripheral pulses 2+ and symmetric. No edema. Respiratory: Lungs clear to auscultation bilaterally, no wheezes, rales, or rhonchi. Normal effort. Abdomen: Soft, non-tender, non-distended. Normoactive bowel sounds. No hepatosplenomegaly, no masses. MSK: Full range of motion, no joint swelling or deformity. Normal gait. Skin: Warm, dry, intact. No rashes, lesions, or pallor. Neuro: Alert and oriented x3. Cranial nerves II-XII intact. Strength 5/5 throughout. Sensation intact. Reflexes 2+ symmetric. Normal coordination and gait. Psych: Appropriate mood and affect. Normal judgment and insight. History of depression and anxiety, currently stable with therapy and medication. History of self-harm, none recently. Coding Level of Care Code New Pt Level 4 (95885) Diagnoses History of ischemic stroke Z86.73 Anxiety and depression F41.9; F32.A Personal history of nonsuicidal self-harm Z91.52 Patent foramen ovale Q21.12 Gender dysphoria F64.9 Morbid obesity due to excess calories E66.01 History of drug overdose Z91.89 History of posttraumatic stress disorder (PTSD) Z86.59 Assessment & Plan Assessment & Plan (1) History of ischemic stroke: Code(s): Z86.73 - Personal history of transient ischemic attack (TIA), and cerebral infarction without residual deficits Category: Medical (2) Anxiety and depression: Code(s): F41.9 - Anxiety disorder, unspecified; F32.A - Depression, unspecified Category: Medical (3) Personal history of nonsuicidal self-harm: Code(s): Z91.52 - Personal history of nonsuicidal self-harm Category: Medical (4) Patent foramen ovale: Code(s): Q21.12 - Patent foramen ovale Category: Medical (5) Gender dysphoria: Code(s): F64.9 - Gender identity disorder, unspecified Category: Medical (6) Morbid obesity due to excess calories: Code(s): E66.01 - Morbid (severe) obesity due to excess calories Category: Medical (7) History of drug overdose: Code(s): Z91.89 - Other specified personal risk factors, not elsewhere classified Category: Medical (8) History of posttraumatic stress disorder (PTSD): Code(s): Z86.59 - Personal history of other mental and behavioral disorders Category: Medical Plan Consent The patient provided verbal consent for a physical examination and for a comprehensive blood panel. Patient was informed and verbally consented to the use of an ambient scribe for clinic note documentation during this visit. Plan 1. Ischemic Stroke - After completion of 21-30 days of dual antiplatelet therapy, the patient will transition to aspirin monotherapy for long-term secondary prevention, as recommended by his neurologist. - Continue atorvastatin for lipid management. - Follow up with neurology as scheduled. 2. Patent Foramen Ovale - Patient will get a month-long event monitor starting on Sunday. - Proceed with scheduled PFO closure on the of the month. - Follow up with cardiology as scheduled. 3. Establish Care And Health Maintenance - Comprehensive blood work ordered, including CBC, CMP, lipid panel, hemoglobin A1c, HIV, hepatitis panel, TSH, B12, folate, and vitamin D. - Will complete PFMLA paperwork for the patient's . - Request records from the patient's compensation adjuster, neurologist, and behavioral health providers to ensure comprehensive care coordination. - Schedule follow-up appointment in two weeks to discuss lab results and next steps. 4. Gender Dysphoria - Continue spironolactone 100 mg twice daily. - Patient will seek written consent from his compensation adjuster and neurologist to restart estrogen therapy after his PFO closure is complete. - Continue follow-up with [facility] for [facility]RT management. 5. Depression And Anxiety - Continue current dose of sertraline. - Continue with current therapist. Discussion Notes I met with the patient today to establish care following his recent ischemic stroke. We reviewed his hospitalization, during which a PFO was discovered, and discussed the plan for upcoming PFO closure. I confirmed the transition from dual antiplatelet therapy to aspirin monotherapy is appropriate. We discussed his hormone replacement therapy and the need for medical clearance from his specialists to restart estrogen after his cardiac procedure. I explained my role as his primary care physician is to provide comprehensive care and stay informed of the care provided by his other specialists, for which I will request their records. I ordered a comprehensive set of baseline labs and we will follow up in two weeks to review the results. I also agreed to complete the PFMLA paperwork he requires. Patient Instructions - Continue taking your medications as prescribed, including aspirin, atorvastatin (Lipitor), sertraline, and spironolactone. - You can stop taking clopidogrel (Plavix) as it was only for a short time after your stroke. - Please proceed with getting the blood work done at the lab [place] today. - Go to your appointment on Sunday to receive the month-long heart monitor. - Proceed with your scheduled heart procedure to close the hole in your heart. - After the heart procedure, you will need to get written permission from your heart doctor and your brain doctor before you can restart your estrogen medication. - Please sign releases so we can get your medical records from your other doctors. - Schedule an appointment to come back in two weeks to discuss your lab results. Medical Decision Making The patient is a 34-year-old male establishing care after a recent ischemic stroke found to be associated with a patent foramen ovale (PFO). His presentation is complex, involving cardiovascular, endocrine (HRT), and psychiatric considerations. The immediate plan for secondary stroke prevention involves transitioning from DAPT to aspirin monotherapy, which is standard of care after 21-30 days, and continuing high-intensity statin therapy. The scheduled PFO closure is a harding intervention to reduce future stroke risk. His HRT, specifically estrogen, was appropriately held given its thrombotic risk post-stroke and will require multidisciplinary clearance before resumption. His mental health appears stable on current therapy, but this requires ongoing monitoring. Given the strong family history of heart disease and diabetes, along with his personal history of obesity, comprehensive baseline labs are crucial for risk stratification and health maintenance. My primary role is to coordinate care between his specialists (cardiology, neurology, psychiatry, and endocrinology via [facility]) to ensure a holistic and safe management plan. A follow- up in two weeks will allow for review of labs and reinforcement of the care plan. Total Time Statement 45 min Total time spent caring for the patient today includes pre-visit chart review, documentation, review of laboratory and diagnostic imaging results, medication reconciliation, medically necessary evaluation, counseling on diagnoses, care coordination, ordering appropriate tests and medications, review of tests performed by other providers, reporting test results to the patient, and communication with other healthcare providers. Orders: Orders Complete Blood Count Auto Diff Today Z13.9 - Encounter for screening, unspecified Comprehensive Met. Panel Today Z13.9 - Encounter for screening, unspecified HIV Ab/Ag Today Z13.9 - Encounter for screening, unspecified UA CC w/rflx Micro + Cult Today Z13.9 - Encounter for screening, unspecified Lipid Panel Today Z13.9 - Encounter for screening, unspecified Vitamin D 1,25 dihydroxy Today Z13.9 - Encounter for screening, unspecified Hepatitis B Surface Antigen Today Z13.9 - Encounter for screening, unspecified Hepatitis C Antibody Today Z13.9 - Encounter for screening, unspecified TSH reflex Free T4 Today Z13.9 - Encounter for screening, unspecified Vitamin B12 and Folate Today Z13.9 - Encounter for screening, unspecified Hemoglobin A1c Today Z13.9 - Encounter for screening, unspecified Magnesium Today Z13.9 - Encounter for screening, unspecified Hepatitis B Surface Antibody Today Z13.9 - Encounter for screening, unspecified
[2025-09-04 08:48] VITALS: BP 120/77; PULSE 73; RESP 16; TEMP 36.9; O2SAT 95; BMI 43.0
== END 2025-09-04 09:12 | disposition home or self-care (01) ==
LOC: HO.HMCFMS 08:29
PROVIDERS: PCP Internal Medicine; Visit Provider Student in an Organized Health Care Education/Training Program
DX: Z86.73 Personal history of transient ischemic attack (TIA), and cerebral infarction without residual deficits (principal); F41.9 Anxiety disorder, unspecified; F32.A Depression, unspecified; Z91.52 Personal history of nonsuicidal self-harm; Q21.12 Patent foramen ovale; F64.9 Gender identity disorder, unspecified; E66.01 Morbid (severe) obesity due to excess calories; Z91.89 Other specified personal risk factors, not elsewhere classified; Z86.59 Personal history of other mental and behavioral disorders

== ENCOUNTER 2025-09-21 08:52 | Outpatient (AMB) | payer OTHER, SELFPAY ==
[2025-09-21 08:59] VITALS: BP 132/72; PULSE 94; TEMP 36.9; O2SAT 96; BMI 43.0
--- NOTE | 2025-09-21 08:59 | A.OFFPC_ITS ---
Vital Signs 09/21/25 08:59 Height 5 ft 5.75 in Weight 264 lb 4 oz BMI 43.0 BP 132/72 Blood Pressure Location Rt brachial Position Sitting Pulse 94 Pulse Source Pulse Oximeter Temp 98.4 F Temp Source Oral Pulse Oximetry (%) 96 Oxygen Delivery Method Room Air Intake Visit Reasons: 2 wk - lab review Baggage Screener Required: No Accompanied by: Self / Same As Patient Allergies No Known Allergies (No Known Allergies*) Allergy (Verified 09/21/25 09:00) Medication List - Last Reconciled 09/21/25 by Jeff Jalloh MD aspirin 1 tab PO QAM atorvastatin 50 mg PO DAILY cyanocobalamin (vitamin B-12) 5,000 mcg sublingual DAILY sertraline 50 mg PO DAILY spironolactone 100 mg PO Tobacco use date assessed: 09/21/25 Dental Screening Dental Screen Date: 09/21/25 Did you have a dental visit in the last 12 months?: Yes Did you have a dental problem in the last 6 months where you did not have access to dental care?: Yes Was dental information given to patient?: Patient has dentist HPI HPI Comments History of Present Illness Details History of Present Illness The patient is a 34 year old individual presenting for review of laboratory results. Vitamin B12 deficiency: Recent lab results showed a vitamin B12 level of 167, which is below the normal range of 200-700. Patent foramen ovale: The patient is scheduled for a PFO closure and is currently wearing a loop monitor that will be removed on the . A transesophageal echocardiogram (LEIA) is scheduled for today. Diagnostic Results: - Labs: Vitamin B12 is 167 (normal 200-7 00). - Other unspecified lab results were nor mal. Past Medical History - Patent foramen ovale, pending closure. Health Maintenance - Reviewed recent lab work, which reveal ed Vitamin B12 deficiency. - Recommended Vitamin B12 supplementatio n daily for three months. - Advised follow-up in three months to r epeat labs. [facility] Medical History (Updated 09/21/25 @ 09:12 by Jeff Jalloh MD) Vitamin B12 deficiency History of posttraumatic stress disorder (PTSD) History of drug overdose Morbid obesity due to excess calories Gender dysphoria Patent foramen ovale Personal history of nonsuicidal self-harm Anxiety and depression History of ischemic stroke Surgical History [place] teeth extracted Family History Father No problems noted. Mother No problems noted. Social History Household Members: Spouse Housing: House Do you presently have visiting nurse or other home services: No Alcohol intake: never Patient Tobacco Use Status: Never used Tobacco Substance Use Type: Marijuana service: No Current occupational status: employed Cognitive needs: No Hearing needs: No Vision needs: No Questionnaire PHQ-9 Over the last 2 weeks, how often have you been bothered by any of the following problems? 1. Little interest or pleasure in doing things: nearly every day 2. Feeling down, depressed, or hopeless: more than half the days 3. Trouble falling or staying asleep, or sleeping too much: not at all 4. Feeling tired or having little energy: nearly every day 5. Poor appetite or overeating: several days 6. Feeling bad about yourself - or that you are a failure or have let yourself or your family down: more than half the days 7. Trouble concentrating on things, such as reading the newspaper or watching television: several days 8. Moving or speaking so slowly that other people could have noticed. Or the opposite - being so fidgety or restless that you have been moving around a lot more than usual: not at all 9. Thoughts that you would be better off or of hurting yourself in some way: several days Total score: 13 Depression Screening Interpretation: Positive Depression Screening Follow-up: In treatment Depression Screening Done: Yes Source: Developed by Drs. Charli Harrison, Amber Horne, Gabriel Fletcher and colleagues, with an educational jose luis from [employer]. Thrive Questionnaire Date Thrive assessed: 09/21/25 I am a: Patient What is your living situation today?: I have a steady place to live Within the past 12 months, did the food you bought not last and you didn't have the money to get more?: Never true Within the past 12 months, did you worry whether your food would run out before you got money to buy more?: Never true Do you have trouble paying for medicines?: No Do you have trouble getting transportation to medical appointments?: No Do you have trouble paying your heating and electricity bill?: Yes Do you have trouble taking care of your child, family member or friend?: No Do you have trouble with day-to-day activities such as bathing, preparing meals, shopping, managing finances, etc.?: No Are you currently unemployed and looking for a job?: No Are you interested in more education?: No Please select the resources that you would like help with: Utilities Currently or been in a relationship where the following occur: No concerns reported THRIVE Score: 1 AUDIT C Alcohol Use Questionnaire (AUDIT-C) 1. How often do you have a drink containing alcohol?: Monthly or less 2. How many drinks containing alcohol do you have on a typical day when you are drinking?: 1 or 2 3. How often do you have six or more drinks on one occasion?: Never Total Score: 1 JOLANTA-7 AMB Questionnaire JOLANTA-7 Date JOLANTA - 7 assessed: 09/21/25 Feeling nervous, anxious, or on edge: 3 = Nearly every day Not being able to stop or control worryin = Nearly every day Worrying too much about different things: 3 = Nearly every day Trouble relaxin = Nearly every day Being so restless that it is hard to sit still: 3 = Nearly every day Becoming easily annoyed or irritable: 0 = Not at all Feeling afraid as if something awful might happen: 3 = Nearly every day Total JOLANTA-7 score (0-4 normal; 5-9 mild; 10-14 moderate; 15-21 severe): 18 Source: Developed by Drs. Charli Harrison, Amber Horne, Gabriel Fletcher and colleagues, with an educational jose luis from [employer]. Review of Systems Narrative Review of Systems 10-point ROS reviewed and negative except as noted in HPI Physical exam (Primary Care) Vital Signs: Last Vital Signs Temp 98.4 F 09/21/25 08:59 Pulse 94 09/21/25 08:59 BP 132/72 09/21/25 08:59 Pulse Ox 96 09/21/25 08:59 Oxygen Delivery Method Room Air 09/21/25 08:59 BMI result Body Mass Index 43.0 Tobacco/Smoking Status: Tobacco use Status Tobacco use date assessed 09/21/25 09/21/25 09:01 Patient Tobacco Use Status Never used Tobacco 09/21/25 09:01 PHQ-9: PHQ-9 Score PHQ-9: Total score 13 09/21/25 09:03 Depression Screening Interpretation: Positive Depression Screening Follow-up: In treatment Thrive Assessment: Date of Thrive Assessment Date Thrive assessed 09/21/25 09/21/25 09:01 Currently or been in a relationship where the following occur: No concerns reported Narrative Physical Exam General: Well-appearing, in no acute distress. Vital signs: Within normal limits. HEENT: Normocephalic, atraumatic. PERRLA, EOMI. Conjunctiva clear, sclera anicteric. Oropharynx clear, mucous membranes moist. TMs intact bilaterally. Neck: Supple, no lymphadenopathy, no thyromegaly, no JVD or carotid bruits. Cardiovascular: RRR, normal S1/S2, no murmurs, rubs, or gallops. Peripheral pulses 2+ and symmetric. No edema. Respiratory: Lungs clear to auscultation bilaterally, no wheezes, rales, or rhonchi. Normal effort. Abdomen: Soft, non-tender, non-distended. Normoactive bowel sounds. No hepatosplenomegaly, no masses. MSK: Full range of motion, no joint swelling or deformity. Normal gait. Skin: Warm, dry, intact. No rashes, lesions, or pallor. Neuro: Alert and oriented x3. Cranial nerves II-XII intact. Strength 5/5 throughout. Sensation intact. Reflexes 2+ symmetric. Normal coordination and gait. Psych: Appropriate mood and affect. Normal judgment and insight. Office Procedures Flu Questionnaire Does the patient have a severe egg allergy?: No Does the patient have severe life threatening allergies?: No Does the patient have a fever or illness today?: No Has the patient ever had Guillain-[place] Syndrome?: No Has the patient ever had any past reaction to a flu shot?: No Immunizations Fluarix [id number] (PF) 45 mcg (15 mcg x 3)/0.5 mL IM syringe Performing Provider: Jeff Jalloh MD Performing Location: [facility] Documented (not given) by: Gwendolyn Ferrera CMA on 09/21/25 09:07 Reason Not Given: Received Previously Coding Level of Care Code Est Pt Level 3 (50130) Diagnoses Vitamin B12 deficiency E53.8 Patent foramen ovale Q21.12 Assessment & Plan Assessment & Plan (1) Vitamin B12 deficiency: Code(s): E53.8 - Deficiency of other specified B group vitamins Category: Medical (2) Patent foramen ovale: Code(s): Q21.12 - Patent foramen ovale Category: Medical Plan Consent Patient was informed and verbally consented to the use of an ambient scribe for clinic note documentation during this visit. Plan 1. Vitamin B12 Deficiency - The patient was found to have a low vitamin B12 level of 167. - Potential symptoms of deficiency were reviewed, including fatigue, tiredness, tingling in the toes, and ringing in the ears. - A prescription for vitamin B12 was sent for the patient to take daily for three months. - A follow-up visit with repeat lab work is scheduled in three months. 2. Patent Foramen Ovale - The patient is awaiting a PFO closure procedure. - The patient has a LEIA scheduled for today and will contact the specialist afterward. - The patient has a loop monitor that will be removed on the , and if results are favorable, the procedure may be performed the same day. Discussion Notes I reviewed the patient's lab results, which were normal with the exception of a low vitamin B12 level of 167. I discussed the potential symptoms associated with this deficiency, such as fatigue, tiredness, paresthesias, and tinnitus. I am prescribing vitamin B12 to be taken daily for three months, at which point we will re-evaluate the levels with repeat lab testing. We also briefly touched on the patient's upcoming PFO closure, noting the LEIA is scheduled for today and the loop monitor is due to be removed on the . Patient Instructions - Take one vitamin B12 supplement every day for the next three months. - Follow up for a repeat lab test in three months. - Contact your specialist after your LEIA today to discuss the next steps for your heart procedure. Medical Decision Making The patient is a 34-year-old individual presenting for a review of lab results. The lab work was significant for a low vitamin B12 level of 167. To address this deficiency, I have recommended a three-month course of daily oral vitamin B12 supplementation. This approach is a low-risk, [id number] intervention to restore normal levels and mitigate potential symptoms like fatigue or paresthesias. The plan includes rechecking lab values in three months to assess the efficacy of the treatment. The patient's care for a patent foramen ovale, including an imminent LEIA and planned closure, remains under the management of their senior tax specialist. Total Time Statement 30 min Total time spent caring for the patient today includes pre-visit chart review, documentation, review of laboratory and diagnostic imaging results, medication reconciliation, medically necessary evaluation, counseling on diagnoses, care coordination, ordering appropriate tests and medications, review of tests performed by other providers, reporting test results to the patient, and communication with other healthcare providers. Orders: Orders Influenza [id number] Immunization Today Z23 - Encounter for immunization Medications: New cyanocobalamin (vitamin B-12) 5,000 mcg sublingual DAILY 90 tabs 0RF
--- OUTSIDE RECORDS SUMMARY | 2025-09-21 10:00 | XMS_ITS | Clinical Summary ---
Author Organization [employer] [facility] Address 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
--- OUTSIDE RECORDS SUMMARY | 2025-09-21 10:00 | XMS_ITS | Clinical Summary ---
Author Organization [facility] Address [address] [place] [phone] Phone Care Team Providers Care Bingo Usher Name Role Phone Pcp, Unknown Primary Care [...] Medical Devices Not on file [place] Care Teams Bingo Usher Relationship Specialty Start Date End Date Pcp, Unknown PCP - General 10/17/19 Additional Source Comments The information contained in this document represents components of the legal health record. It is not the complete legal health record[facility]
== END 2025-09-21 09:09 | disposition home or self-care (01) ==
LOC: HO.HMCFMS 08:53
PROVIDERS: PCP Internal Medicine; Visit Provider Student in an Organized Health Care Education/Training Program
DX: E53.8 Deficiency of other specified B group vitamins (principal); Q21.12 Patent foramen ovale; Z23 Encounter for immunization

== ENCOUNTER → 2025-09-21 08:52 | Outpatient (BNVA) | payer OTHER, SELFPAY | PROVIDERS: PCP Internal Medicine; Visit Provider Student in an Organized Health Care Education/Training Program | DX: E53.8 Deficiency of other specified B group vitamins (principal); Q21.12 Patent foramen ovale; Z13.31 Encounter for screening for depression; Z13.39 Encounter for screening examination for other mental health and behavioral disorders | CPT/HCPCS: 90471; 96127; 99212 ==